=== PATIENT | female | born 1990 | race Caucasian/White ===

== ENCOUNTER 2019-09-24 06:50 | Inpatient (IN) | payer BC, SELFPAY ==
[2017-06-03 15:54] VITALS: BMI 25.6
[2019-09-24 07:23] VITALS: BMI 26.4
[2019-09-24] MEDS: Lactated Ringers 1,000 ML 50 ML IV (07:50)
[2019-09-24 08:11] LABS: Absolute Neutrophil Count 6.6 X10^3/uL (2.0-7.7); Basophil# 0.04 X10^3/uL; Basophil% 0.4 % (0-1); Eosinophil# 0.12 X10^3/uL; Eosinophils% 1.3 % (0-5); Hematocrit 36.9 % (37-47); Hemoglobin 12.7 g/dL (12.0-15.0); Lymphocyte % 15.5 % (19-41); Mean Corp Hgb Conc 34.4 g/dL (32-36); Mean Corpuscular Hgb 31.8 pg (27.0-32.0); Mean Corpuscular Volume 92.3 fL (81-99); Mean Platelet Vol. 10.5 fl (6.2-12.0); Monocyte# 0.76 X10^3/uL; Monocyte% 8.4 % (0-10); NRBC Flagged by Analyzer 0 % (0-5); Neutrophil # 6.57 X10^3/uL (2.7-7.7); Platelet Count 170 K/mm3 (150-450); RBC Distribution Width CV 13.2 % (11.6-14.6); RBC Distribution Width SD 43.5 fl (35.1-43.9)
[2019-09-24 08:23] LABS: AST(SGOT) 13 U/L (15-37)
[2019-09-24 08:32] LABS: Partial Thromboplast Time 27.6 Seconds (24.1-36.2)
[2019-09-24] MEDS: Oxytocin 30 units/NS 500 ml 30 UNITS/500 ML IV.SOLN IV (08:33)
--- NOTE | 2019-09-24 09:28 | PCM.HP.OB ---
History Date of Admission: 06/03/17 Final JANETH: 09/28/19 Final JANETH Source: US <20 weeks Gestational age: 39 Weeks and 3 Days History of this : This is a 29 year-old, 2 para 1 presents at 39-3/7 weeks gestation for duction of labor due to history of venous thromboembolism and has been on Lovenox. She desires epidural, and due to risk of not being able to get an epidural if she is recently taken Lovenox, she was scheduled for induction. This has been uncomplicated. Did have some nausea and vomiting of in the first trimester. She has been on Lovenox. She denies any vaginal bleeding or leaking of fluid. She is had good movement. No regular contractions. Obstetrical history is significant for 1 full-term vaginal delivery of a 7 pound 11 ounce without complications at 39 weeks and 6 days. S medical history is significant for remote history of chlamydia that was treated, history of DVT of the left leg, and history of mood disorder. Allergies clindamycin Allergy (Verified 09/24/19 07:24) Rash Home Medications: Home Medications Vits [Prenatabs FA ] 1 tablet PO DAILY 10/13/16 Enoxaparin Sodium [Lovenox] 40 mg SQ DAILY 09/24/19 Smoking Status: Never smoker Alcohol: None Number of Fetus(es): 1 NST - FHR Rate Baby A Baseline: normal Variability:: Moderate Accelerations:: 15 x 15 NST Reactive:: Yes FHR Category:: Category I Uterine Activity:: irreg ctxs History Past Pregnancies: Past Pregnancies Delivery Date Name GA/ Weeks Outcome Route Wt Sex Labor Length Anesthesia Delivery Location Provider FOB Expected Delivery Method: Spontaneous Vaginal Review of Systems Constitutional: Denies: Chills, Fever Eyes: Denies: Blurred vision Cardiovascular: Denies: Chest Pain Respiratory: Denies: Cough, Shortness of Breath Genitourinary: Denies: Dysuria, Hematuria Skin: Denies: Rash Neurological: Denies: Blurred vision, Change in Speech, Confusion Hematologic/ Lymphatic: Reports: Hx of blood clot Physical Exam General: Alert, Cooperative, No apparent distress Cardiovascular: Regular rate Lungs: Normal air movement Abdomen: Soft, Non Tender, Non-Distended, Gravid, Appropriate for Gestational Age Extremities:: No edema Neurological: Cranial nerves II-XII grossly intact, Neuro grossly intact. 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 We are holding the Lovenox for 24 hours before induction so patient can get epidural. Will restart Lovenox for history of VTE after delivery. Risk benefits and alternatives to induction been discussed with the patient, her questions were answered to her satisfaction she desires to proceed. May have epidural, nitrous oxide or IV pain medications as needed. Estimated weight is less than her previous delivery. Pelvis is clinically adequate to expect vaginal delivery.
[2019-09-24] MEDS: Lactated Ringers 500 ML 999 ML IV (09:29)
[2019-09-24] MEDS: fentaNYL-bupivacaine (epidural) 100 ML BAG EPIDURAL (10:53)
[2019-09-24] MEDS: Oxytocin 30 units/NS 500 ml 30 UNITS/500 ML IV.SOLN 334 UNITS IV (12:12)
--- NOTE | 2019-09-24 12:25 | PCM.OPRPT ---
Vaginal Delivery Maternal Presentation: Medically Indicated Induction Method of Induction: Pitocin, Amniotomy Medical Reason for Induction: - - on lovenox, h/o VTE Amniotic Membrane Rupture Type: Artificial Amniotic Fluid Description: Clear Final JANETH: 09/28/19 Final JANETH Source: US <20 weeks Gestational age: 39 Weeks and 3 Days Date of Procedure: 09/24/19 Pre-Operative Diagnosis: labor Post-Operative Diagnosis: same Surgery/ Procedure Performed: Spontaneous Vaginal Delivery Type of Anesthesia: Epidural Description of Procedure: A vigorous [female] was delivered [RICHMOND] over a small first-degree perineal abrasion. The remainder the was delivered with maternal pushing and gentle traction only in less than 15 seconds. The Pitocin infusion was initiated for active management of the third stage. The cord was clamped and cut [after 1 minute]. The infant was attended to by the waiting nursing staff. The placenta was delivered spontaneously and intact. The cervix and vagina were intact. The first-degree perineal laceration was not repaired, it was hemostatic. Sponge and needle counts were correct. A vaginal sweep was completed by me. Presentation: RICHMOND Placental Delivery Description: Spontaneous Placenta Disposition: [facility] Cord Vessel Description: 3 Vessels Cord Entanglement: None Drain: - - none Estimated Blood Loss: 200 Infant A gender: Female (1 minute): 9 (5 minute): 10 Episiotomy Description: None Laceration: 1st degree - perineal Medications given after delivery: IV Pitocin Complications: None
--- NOTE | 2019-09-24 12:35 | NURSING ---
No other epidural placement but was in surgery.
[2019-09-24 18:00] VITALS: BP 115/65; PULSE 94; RESP 16; TEMP 37.2; O2SAT 97
[2019-09-24 19:38] VITALS: BP 110/61; PULSE 84; RESP 16; TEMP 36.6; O2SAT 96
[2019-09-24] MEDS: Senna/Docusate Sodium 1 Tablet PO (21:29)
[2019-09-25 00:35] VITALS: BP 108/58; PULSE 89; RESP 16; TEMP 36.7; O2SAT 95
[2019-09-25 04:30] VITALS: BP 118/74; PULSE 72; RESP 18; TEMP 36.3; O2SAT 98
[2019-09-25] MEDS: Naproxen 250 MG Tablet 500 MG PO (04:35)
[2019-09-25] MEDS: Senna/Docusate Sodium 1 Tablet PO (07:54)
[2019-09-25] MEDS: Enoxaparin 40 MG/0.4 ML Syringe SC (07:54)
[2019-09-25 08:00] VITALS: BP 101/56; PULSE 67; RESP 16; TEMP 36.7
--- NOTE | 2019-09-25 09:41 | PCM.PN.OB ---
Subjective: Pain well controlled. Average lochia. No new complaints. - Physical Exam Vitals/I&O's: Vital Signs Temp Pulse Resp BP Pulse Ox 98.1 F 67 16 101/56 L 98 09/25/19 08:00 09/25/19 08:00 09/25/19 08:00 09/25/19 08:00 09/25/19 04:30 Oxygen Delivery Method Room Air Weight: 69.8 kg Body Mass Index (BMI) 26.4 Intake and Output for Last 24 Hours 09/23/19 09/24/19 09/25/19 23:59 23:59 23:59 Intake Total 1220.9 / 1220.9 Balance 1220.9 / 1220.9 General: Alert, Cooperative, No apparent distress Current Medications Acetaminophen (Tylenol) 1,000 mg PO Q8H PRN PRN PRN Reason: Pain Score 1-3/10 Bisacodyl (Dulcolax) 10 mg RECTAL UD PRN PRN Reason: If no BM Dibucaine (Dibucaine) 1 applic TOPICAL TID PRN PRN; Protocol PRN Reason: Discomfort Enoxaparin Sodium (Lovenox) 40 mg SC DAILY@0800 JUSTEN Last Admin: 09/25/19 07:54 Dose: 40 mg Documented by: Hydrocortisone (Hytone) 1 applic TOPICAL TID PRN PRN; Protocol PRN Reason: Discomfort Methylergonovine Maleate (Methergine) 0.2 mg IM X1 PRN PRN Reason: Excess bleeding/uterine atony Naproxen (Naprosyn) 500 mg PO Q8H PRN PRN PRN Reason: Pain Score 1-3/10 Last Admin: 09/25/19 04:35 Dose: 500 mg Documented by: Ondansetron HCl (Zofran) 4 mg IV Q4H PRN PRN PRN Reason: Nausea Oxycodone HCl (Oxyir) 5 - 10 mg PO Q4H PRN PRN PRN Reason: Pain Score 4-10/10 Prochlorperazine Edisylate (Compazine Iv) 10 mg IV Q6H PRN PRN PRN Reason: NAUSEA/VOMITING Senna/Docusate Sodium (Senokot-S, Janae-Colace) 1 - 2 tablet PO DAILY PRN PRN PRN Reason: Constipation Last Admin: 09/25/19 07:54 Dose: 2 tablet Documented by: Simethicone (Mylicon) 80 mg PO PCHS PRN PRN Reason: Indigestion/Stomach pain Sodium Chloride () 5 - 15 ml IV UD PRN PRN Reason: SALINE FLUSH Medical Necessity - Tobacco Use Smoking Status: Never smoker Assessment/Plan day #1 status post vaginal delivery. Patient and are both doing well. Working on breast-feeding. Routine care. Desires discharge home tomorrow.
[2019-09-25 11:50] VITALS: BP 104/55; PULSE 71; RESP 16; TEMP 36.8
[2019-09-25 15:14] VITALS: BP 109/69; PULSE 71; RESP 16; TEMP 36.9
[2019-09-25 20:05] VITALS: BP 110/73; PULSE 70; RESP 16; TEMP 37.1
[2019-09-26 01:30] VITALS: BP 102/55; PULSE 80; RESP 16; TEMP 36.9
[2019-09-26 07:47] VITALS: BP 114/68; PULSE 74; RESP 16; TEMP 37.1
[2019-09-26] MEDS: Enoxaparin 40 MG/0.4 ML Syringe SC (07:55)
--- NOTE | 2019-09-26 08:03 | PCM.PN.OB ---
Subjective: Patient seen at bedside, doing well. Patient reports good pain control. Mild lochia. Breast-feeding going well. - Physical Exam Vitals/I&O's: Vital Signs Temp Pulse Resp BP Pulse Ox 98.8 F 74 16 114/68 98 09/26/19 07:47 09/26/19 07:47 09/26/19 07:47 09/26/19 07:47 09/25/19 04:30 Oxygen Delivery Method Room Air Weight: 69.8 kg Body Mass Index (BMI) 26.4 Intake and Output for Last 24 Hours 09/24/19 09/25/19 09/26/19 23:59 23:59 23:59 Intake Total 1220.9 / 1220.9 Balance 1220.9 / 1220.9 General: Alert, Oriented x3 Abdomen: Soft, Non Tender, Non-Distended, - - FUNDUS FIRM Extremities: No Calf Tenderness Neurological: Cranial nerves II-XII grossly intact Current Medications Acetaminophen (Tylenol) 1,000 mg PO Q8H PRN PRN PRN Reason: Pain Score 1-3/10 Bisacodyl (Dulcolax) 10 mg RECTAL UD PRN PRN Reason: If no BM Dibucaine (Dibucaine) 1 applic TOPICAL TID PRN PRN; Protocol PRN Reason: Discomfort Enoxaparin Sodium (Lovenox) 40 mg SC DAILY@0800 JUSTEN Last Admin: 09/26/19 07:55 Dose: 40 mg Documented by: Hydrocortisone (Hytone) 1 applic TOPICAL TID PRN PRN; Protocol PRN Reason: Discomfort Methylergonovine Maleate (Methergine) 0.2 mg IM X1 PRN PRN Reason: Excess bleeding/uterine atony Naproxen (Naprosyn) 500 mg PO Q8H PRN PRN PRN Reason: Pain Score 1-3/10 Last Admin: 09/25/19 04:35 Dose: 500 mg Documented by: Ondansetron HCl (Zofran) 4 mg IV Q4H PRN PRN PRN Reason: Nausea Oxycodone HCl (Oxyir) 5 - 10 mg PO Q4H PRN PRN PRN Reason: Pain Score 4-10/10 Prochlorperazine Edisylate (Compazine Iv) 10 mg IV Q6H PRN PRN PRN Reason: NAUSEA/VOMITING Senna/Docusate Sodium (Senokot-S, Janae-Colace) 1 - 2 tablet PO DAILY PRN PRN PRN Reason: Constipation Last Admin: 09/25/19 07:54 Dose: 2 tablet Documented by: Simethicone (Mylicon) 80 mg PO PCHS PRN PRN Reason: Indigestion/Stomach pain Sodium Chloride () 5 - 15 ml IV UD PRN PRN Reason: SALINE FLUSH Medical Necessity - Tobacco Use Smoking Status: Never smoker Assessment/Plan ppd#2, DOING WELL ROUTINE CARE PAIN MGMT DC HOME TODAY- CONTINUE LOVENOX 40 DAILY - 12 WEEKS PP- H/O DVT
--- NOTE | 2019-09-26 08:09 | DCINST_ITS ---
Discharge Diet: No Restrictions Discharge Activity: Return to Normal Activity, May not drive while taking narcotic pain medications., May Shower May resume sexual activity in: 4-6 weeks Additional Activity Instructions:: Nothing in the vagina for 4-6 weeks. You may return to work/school in 6 weeks. Call your doctor if your incision/area has: Continuous Slow Oozing, Sudden Increased Bleeding, Increased Pain/ Swelling, Increased Redness, Foul Smelling Discharge Additional Instructions: If you experience any of the following, contact your healthcare provider. * Bleeding that soaks a pad every hour for 2 hours * Fever 100.4 or higher * Unrelieved incision or abdominal pain * Swelling, redness, discharge or bleeding from your incision or episiotomy site * Your incision begins to separate * Problems urinating (including inability to urinate or burning while urinating). * Visual changes * Severe headache * Flu-like symptoms * Pain or redness in one of both of your breasts * Pain, warmth, tenderness or swelling in your legs, especially the calf area * Frequent nausea and vomiting * Symptoms of depression or anxiety If you experience any of the following, call 911 or go to the nearest Emergency Room. * Chest pain * Problems breathing * Seizure activity * Partial or complete paralysis of a body part, slurred speech, weakness or drooping of the face, or a sudden inability to walk or hold your balance Allergies/Adverse Reactions: Allergies clindamycin Allergy (Verified 09/24/19 07:24) Rash Medications to take at Discharge Vits [Prenatabs FA ] 1 tablet PO DAILY 10/13/16 Enoxaparin Sodium [Lovenox] 40 mg SQ DAILY #30 syringe 09/26/19 Naproxen [Naprosyn] 500 mg PO Q8H PRN PRN #30 tab 09/26/19 The following prescriptions were given: Enoxaparin Sodium [Lovenox] 40 mg SQ DAILY #30 syringe Transmission Status: Pending to [id number] Naproxen [Naprosyn] 500 mg PO Q8H PRN PRN #30 tab PRN Reason: Pain Score 1-3/10 Transmission Status: Pending to [id number] When: Call to make an appointment with your doctor in 6 weeks. If you had elevated Blood Pressure or 4th degree laceration you will need to be seen in 2 weeks. Primary Care Physician: Twin Guajardo DO [Primary Care Provider] - Test Results: Test results from this visit will be discussed in further detail at your follow- up appointment, if applicable.
== END 2019-09-26 11:00 | disposition home or self-care (01) | DRG 807 ==
PROVIDERS: Admitting Provider Obstetrics & Gynecology; Family Provider Student in an Organized Health Care Education/Training Program; PCP Student in an Organized Health Care Education/Training Program; Referring Provider Obstetrics & Gynecology; Visit Provider Obstetrics & Gynecology
DX: O75.9 Complication of labor and delivery, unspecified (principal); Z37.0 Single live birth; O70.0 First degree perineal laceration during delivery; M41.9 Scoliosis, unspecified; Z86.718 Personal history of other venous thrombosis and embolism; Z3A.39 39 weeks gestation of pregnancy
CPT/HCPCS: 59050; 84450; 85025; 85730; 86850; 86900; 86901; 99218; J7120; G0378

== ENCOUNTER 2021-08-22 13:14 | Day surgery (SDC) | payer BC, SELFPAY ==
--- NOTE | 2021-08-13 11:36 | PCM.HP.BLA ---
History and Physical Date of Admission: 08/22/21 HPI: The patient is a 31 year old female presenting for pre-operative visit. She is scheduled for hysteroscopy dilation and curettage, and Mirena IUD insertion, for abnormal uterine bleeding and contraception on 08/22/21. Procedure discussed along with risks, benefits and complications. Other alternatives discussed for management. Consent form signed? Yes. ? ? PAST MEDICAL HISTORY PAST MEDICAL HISTORY Diagnosis Date ? Chlamydia 2009 ? hsv 2 2019 ? Infectious mononucleosis ? ? 07/19/10 ? Mental disorder ? ? Strain of shoulder 07/30/2021 ? Venous thrombosis 03/2008 ? Left Leg, unsure of cause, ? due to OCP ? ? PAST SURGICAL HISTORY PAST SURGICAL HISTORY Procedure Laterality Date ? INSERT INTRAUTERINE DEVICE ? 06/19/08, 07/2013 ? mirena, removed 08/2016 ? PAST SURGICAL HISTORY OF ? ? ? wisdom teeth ? ? ? CURRENT MEDICATIONS Current Outpatient Medications Medication Sig Dispense Refill ? medroxyPROGESTERone (PROVERA) 10 mg tablet Take 1 tablet by mouth once daily for 20 days. Start 5 days after menses onset 20 tablet 0 ? No current facility-administered medications for this visit. ? ? ALLERGIES: Clindamycin ? PERSONAL HISTORY: SOCIAL HISTORY Social History ? Tobacco Use ? Smoking status: Never Smoker ? Smokeless tobacco: Never Used Vaping Use ? Vaping Use: Never used Substance Use Topics ? Alcohol use: Not Currently ? ? Comment: rarely ? Drug use: No ? FAMILY HISTORY: FAMILY HISTORY FAMILY HISTORY Problem Relation Age of Onset ? Kidney Disease Mother ? ? other (colon polyp-benign) Father ? ? No Known Problems Brother ? ? No Known Problems Maternal Grandmother ? ? Heart Maternal Grandfather ? ? [place] ? No Known Problems Paternal Grandmother ? ? No Known Problems Paternal Grandfather ? ? No Known Problems Son ? ? ? REVIEW OF SYMPTOMS: GENERAL: denies fevers or chills ENDOCRINOLOGY: has not been on steroids Cardiology : denies palpitations or chest pain Respiratory: denies SOB or cough Hematology: denies history of prolonged bleeding or easy bruising or VTE Allergy: Denies history of personal or family history of allergy to anesthesia ? PHYSICAL EXAMINATION: ? VITALS: Blood pressure 92/62, pulse 76, resp. rate 16, height 5' 4 (1.626 m), weight 144 lb (65.3 kg), last menstrual period 06/11/2021, not currently . ? GENERAL: The patient is well nourished, well hydrated in no acute distress. , The patient is oriented to time, place, and person. NECK: Supple. No lynphadenopathy, normal thyroid, no thyromegaly. LUNGS: Clear to auscultation bilaterally. no wheezes, rhonchi or rales HEART: Regular rate and rhythm, Normal heart sounds and No murmurs or gallops ? IMPRESSION: retroverted uterus, abnormal uterine bleeding, contraception management ? PLAN: The risks/benefits/alternatives and personal involved for the planned hysteroscopy dilation curettage and Mirena IUD insertion were reviewed with the patient. Her questions were answered to her satisfaction and she desires to proceed. Consent was signed. I reviewed with her postop instructions and expectations. ? ? I have reviewed and updated past medical and surgical history, medications and allergies This H&P was completed in my office on 08/12/21. Assessment & Plan Assessment/Plan (1) Abnormal uterine bleeding (AUB): (2) Encounter for IUD insertion:
[2021-08-19 13:34] LABS: Hematocrit 40.6 % (37-47); Hemoglobin 13.4 g/dL (12.0-15.0); Mean Corpuscular Hgb 29.8 pg (27.0-32.0); Mean Corpuscular Volume 90.2 fL (81-99); Mean Platelet Vol. 9.8 fl (6.2-12.0); Platelet Count 226 K/mm3 (150-450); RBC Distribution Width CV 12.7 % (11.6-14.6); RBC Distribution Width SD 41.7 fl (35.1-43.9)
[2021-08-22] VITALS (11 sets, daily range): BP systolic 86–112; BP diastolic 45–66; PULSE 58–93; RESP 18; TEMP 36.6–36.7; O2SAT 98–100; BMI 24.6
--- NOTE | 2021-08-22 | EMB_PTH ---
PATIENT: FREDRICK CONTEH [place] [facility] [id number] AGE/SX: 31/F ROOM: RE08/22/[address]: Dr. Desiree Dudley MD : 1990 BED: DIS: 08/22/2021 SPEC #: [id number] RECD: 08/23/21 07:39 STATUS: MARCO REAlona #: [id number] KAYLA: 08/22/21 00:[address]: Desiree Dudley DEPT: SURGICAL PATHOLOGY RECD BY: Caleb Matos ENTERED: 08/23/21 08:30 SP TYPE: ENDOM BX/C SILVESTRE DR: Dr. Twin Guajardo, DO Tissues: Endometrium, NOS Procedures: Surgery Specimen Level IV HEADER OPERATION: Hysteroscopy, D & C, Mirena IUD insertion PRE-OP DIAGNOSIS: Abnormal uterine bleeding, IUD insertion TISSUE SUBMITTED: Endometrial curettings MICROSCOPIC DIAGNOSIS Endometrium, curettings: Transition endometrium with focal glandular breakdown. Fragments of benign superficial endocervix. Rare strips of benign superficial squamous mucosa. AM:kesha 08/26/2021 MICROSCOPIC DESCRIPTION Slides are reviewed. GROSS DESCRIPTION Received in fixative is one container labeled with the patient's name and designated endometrial curettings. The specimen consists of multiple irregular fragments of light gomes soft tissue that in aggregate measure 1.5 x 1 x <0.1 cm. The specimen is totally submitted in one cassette. / AM:kesha 08/23/21 TC:5 CPT: 25128
[2021-08-22 13:42] LABS: Internal QC Validated? YES +Cl - CLEAR BKGD; Pregnancy, Urine Negative Negative
[2021-08-22] MEDS: Lactated Ringers 1,000 ML 15 ML IV (13:45)
[2021-08-22] MEDS: Ketorolac 30 MG/ML Syringe IV (13:50)
[2021-08-22] MEDS: Acetaminophen 500 MG Tablet 1000 MG PO (13:50)
--- NOTE | 2021-08-22 18:03 | PCM.DC ---
Discharge Instructions Diet Discharge Diet: No restrictions Activity May resume sexual activity in: 2 weeks Lifting Restrictions: none Dressing / Incision Call your doctor if your incision/area has: Sudden Increased Bleeding and Foul Smelling Discharge Call your doctor if you observe: Fever of 101 or Higher and Using more than 1 pad per hour (for 2 hrs in a row) Follow Up Care Please Follow Up With: Desiree Dudley MD When: 2-4 weeks or as needed. Call [phone] to make an appointment or with any concerns. Test Results: Test results from this visit will be discussed in further detail at your follow-up appointment, if applicable. Discharge Plan Admission Primary Reason for Your Visit: D&C with Mirena IUD insertion Attending Provider: Desiree Dudley Primary Care Provider: Twin Guajardo Discharge Orders/Prescriptions Prescriptions: No Action vitamin B complex [Super B Complex] Capsule 1 cap PO DAILY RF: 0 cholecalciferol (vitamin D3) [Vitamin D3] 50 mcg (2,000 unit) Tablet 50 mcg PO DAILY RF: 0 Referrals / Follow Up: Twin Guajardo DO [Primary Care Provider] - Disposition Disposition (needs filled in before D/C Order can be placed): Home, Self Care
[2021-08-22] MEDS: Lidocaine 1% /Epi 1:100 (20ml) 20 ML Vial (18:28)
--- NOTE | 2021-08-22 18:36 | PCM.OPRPT ---
Problems Associated Problem List Diagnoses (1) Abnormal uterine bleeding (AUB): (2) Encounter for IUD insertion: Report of Operation Date of Procedure: 08/22/21 Pre-Operative Diagnosis: AUB, IUD insertion Post-Operative Diagnosis: same Surgery/Procedure Performed:: hysteroscopy D&C with Mirena IUD insertion Description of Surgical Findings:: normal cervix, vagina, endoemtrial cavity without discrete pathology, normal endometrium Surgeon: Desiree Dudley billing manager: None Type of Anesthesia: MAC/Supplemental/Local Anesthesiologist: Garett Luna Special Medications: none Specimen's removed: endometrial curettings Drains: none Estimated Blood Loss (mL): 10 Fluids Replaced: 600 Description of Procedure: The patient was taken to the OR where she was prepped and draped in dorsal lithotomy position. The weighted speculum was placed in the vagina and the anterior lip of the cervix was grasped with a single-tooth tenaculum. A paracervical block was administered with [1% lidocaine with 1-100,000 epinephrine solution]. The cervix was dilated serially with Hegar dilators. The [5mm] hysteroscope was placed into the uterine cavity and the above findings were noted. Bilateral tubal ostia [were] identified. The hysteroscope was removed. A gentle sharp curettage was done of the uterine cavity. The Mirena IUD was then inserted the usual sterile fashion. The uterus was anteverted and sounded to 8 cm. The strings were trimmed to 2 cm. The instruments were removed from the vagina. The specimen was handed off and sent to pathology. All sponge and needle counts were correct. Vaginal sweep was performed by me. The patient was awakened and taken to the recovery room in stable condition. Hysteroscopic ins: 50cc normal saline Hysteroscopic outs:50cc Grafts/Implants Used: Mirena IUD Procedure Start Time: 18:28 Procedure Stop Time: 18:32 Complications none Admit VTE Documentation VTE Present on Admission: No VTE Mechan Device Prophylaxis: SCD's VTE Pharm Prophylaxis ordered?: No Reason prophylaxis not ordered:: Procedure Not Indicated
== END 2021-08-22 19:48 | disposition home or self-care (01) ==
LOC: SDC 13:14 → AC 13:15
PROVIDERS: Anesthesiology; PCP Student in an Organized Health Care Education/Training Program; Referring Provider Obstetrics & Gynecology; Visit Provider Obstetrics & Gynecology
PROC: 0UDB8ZZ Extraction of Endometrium, Via Natural or Artificial Opening Endoscopic (ICD-10-PCS; CPT 58558; principal; 2021-08-22 14:45)
DX: N93.9 Abnormal uterine and vaginal bleeding, unspecified (principal); N85.4 Malposition of uterus; Z30.430 Encounter for insertion of intrauterine contraceptive device; Z82.49 Family history of ischemic heart disease and other diseases of the circulatory system; Z86.718 Personal history of other venous thrombosis and embolism; Z88.1 Allergy status to other antibiotic agents
CPT/HCPCS: 58300; 58558; 36415; 81025; 85027; 87635; 88305; C9803; J7120; U0005; J2405; U0003

== ENCOUNTER 2023-05-24 15:03 | Emergency (ER) | payer BC, SELFPAY ==
[2023-05-24 15:03] VITALS: BP 108/70; PULSE 78; RESP 16; TEMP 36.6; O2SAT 99; BMI 24.7
--- NOTE | 2023-05-24 15:18 | EDS_ITS ---
HPI History of Present Illness Chief Complaint: Upper Extremity Injury Informant: patient Narrative Narrative: Healthy 33-year-old female about 19-20 weeks sustained an injury, she [place] the [place] with [place] 200+ pound sheep, who became scared and caused her to fall, and then stepped on her, injuring her left upper arm, she does not know if anything else injured but she does not think so, she is unsure exactly how she fell, her states that it looks like she rolled a little. She denies any abdominal pain, vaginal leakage or bleeding, she is feeling a little flutter in her abdomen consistent with the baby moving, but is just concerned nicely about her . She is on Lovenox shots because he has a history of a DVT. [facility] Medical History Abnormal uterine bleeding (AUB) Depression DVT (deep venous thrombosis) Former smoker Non-smoker Open wound Restless legs Wears glasses Home Medications cholecalciferol (vitamin D3) 50 mcg (2,000 unit) tablet (Vitamin D3) 50 mcg PO DAILY 08/16/21 [History Last Taken Unknown] vitamin B complex 1 cap PO DAILY 08/16/21 [History Last Taken Unknown] Allergy/AdvReac Type Severity Reaction Status Date / Time clindamycin Allergy Rash Verified 05/24/23 15:05 Surgical History History of wisdom tooth extraction Social History Smoking Status: Never smoker [facility] ED Constitutional Constitutional ED: Denies chills or fever(s) Eyes Eyes: Denies change in vision or diplopia ENT ENT ED: Denies rhinorrhea or sore throat Cardiovascular Cardiovascular: Denies chest pain or palpitations Respiratory/Chest Respiratory/Chest: Denies cough or dyspnea Gastrointestinal Gastrointestinal: Denies abdominal pain, diarrhea, nausea or vomiting Genitourinary Genitourinary ED: Denies dysuria or hematuria Musculoskeletal Musculoskeletal: Denies back pain or neck pain Integumentary Denies abscess or rash Neurologic Neurologic: Denies headache(s), paresthesias or weakness Psychiatric Psychiatric: Denies anxiety or suicidal thoughts EXAM Physical Exam Const Vital Signs: 05/24/23 15:03 Temperature 98 F Temperature Source Temporal Pulse Rate 78 Respiratory Rate 16 Blood Pressure 108/70 Blood Pressure Mean 82 Pulse Ox 99 Oxygen Delivery Method Room Air Positive well nourished and well developed General Appearance ED: well developed and NAD HEENT Reports moist mucous membranes normocephalic and atraumatic Eyes PERRL and EOMs intact bilaterally Neck full ROM and supple Resp normal respiratory effort and clear to auscultation bilaterally Cardio regular rate, regular rhythm and no murmurs GI non-tender GI Narrative: Lower abdominal distention to about the umbilicus consistent with second trimester . No signs of trauma. Auscultation: normoactive bowel sounds Palpation: soft Back/Spine no CVA tenderness General Back: other FROM Extremity normal to inspection Extremity Narrative: Mild tenderness at contusion left upper arm medially, no bony tenderness, full range of motion. No other extremity bony tenderness or signs of trauma except for a minor abrasion on the right foot. General Extremety ED: Yes tenderness; Negative for edema or pulses abnormal General Extremity: Negative for edema or pulses abnormal Neuro oriented x3, CN's II-XII intact bilaterally and no sensory deficits noted Sensorium / Orientation: awake and alert Motor Exam: strength 5/5 throughout Skin no rashes or lesions noted and no wounds Skin Narrative: contusion L upper arm Trauma: abrasion MDM MDM MDM Narrative Medical decision making narrative: Nursing check heart tones 158. Her blood type is O+ no RhoGAM indicated. Discussed with Tracie Marx on for her computer engineering technician. She is okay with the patient following up as an outpatient. Patient is okay with this as well. We discussed reasons to return. History & Record Review Additional record(s) reviewed:: Prior labs (blood type: O+) Management Discussion w/another healthcare provider: Building Energy Consultant Discharge Plan Triage Chief Complaint: Upper Extremity Injury ED Provider: Jean Marie Jiang Dx/Rx/DC Orders Clinical Impression: Contusion of left arm, Second trimester , Fall Instructions: ED Contusion, Upper Extremity Prescriptions: No Action vitamin B complex [Super B Complex] Capsule 1 cap PO DAILY cholecalciferol (vitamin D3) [Vitamin D3] 50 mcg (2,000 unit) Tablet 50 mcg PO DAILY Primary Care Provider: Twin Guajardo Referrals: Twin Guajardo, [Primary Care Provider] - Desiree Dudley MD [Med Staff - Active Staff] - As soon as possible Disposition Disposition: Home, Self Care
[2023-05-24 16:27] VITALS: BP 124/76; PULSE 62; RESP 15; O2SAT 97
== END 2023-05-24 16:29 | disposition home or self-care (01) ==
LOC: ED 16:19
PROVIDERS: Emergency Provider Emergency Medicine; PCP Student in an Organized Health Care Education/Training Program; Visit Provider Emergency Medicine
DX: O9A.212 Injury, poisoning and certain other consequences of external causes complicating pregnancy, second trimester (principal); Z86.718 Personal history of other venous thrombosis and embolism; Z79.01 Long term (current) use of anticoagulants; S50.12XA Contusion of left forearm, initial encounter; W17.89XA Other fall from one level to another, initial encounter; Y93.89 Activity, other specified; Y92.89 Other specified places as the place of occurrence of the external cause; Z3A.19 19 weeks gestation of pregnancy
CPT/HCPCS: 99282

== ENCOUNTER 2023-10-12 06:55 | Inpatient (IN) | payer BC, SELFPAY ==
[2023-10-12] VITALS (32 sets, daily range): BP systolic 95–112; BP diastolic 52–70; PULSE 61–96; RESP 16–18; TEMP 36.6–36.8; O2SAT 95–100; BMI 26.9
--- OUTSIDE RECORDS SUMMARY | 2023-10-12 07:01 | XMS RPT_ITS | CCD ---
Author Name Unknown Address [address] [place] [address] Organization [facility] Care Team Providers Care Exhibit Builder Name Role Phone Twin Toro DO Primary Care Provider [phone] TWIN TORO Primary Care Unavailable CADEN SPEARS Attending Unavailable TORO, TWIN Kelby Primary Care Unavailable CELENA WALKER Attending Unavailable MINERVA SCHULTZ Referring Unavailable TORO, TWIN Kelby Primary Care Unavailable TORO TWIN Kelby Primary Care Unavailable TRACIE HARO Attending Unavailable TORO, TWIN Kelby Primary Care Unavailable TORO, TWIN Kelby Primary Care Unavailable RAYMOND VANN Referring Unavail able TRACIE HARO Referring Unavailable TORO, TWIN Kelby Primary Care Unavailable TORO, TWIN Kelby Primary Care Unavailable RAYMOND VANN Attending Unavail able TORO, TWIN Kelby Primary Care Unavailable RAYMOND VANN Attending Unavail able TRACIE HARO Attending Unavailable TORO, TWIN Kelby Primary Care Unavailable TORO, TWIN Kelby Primary Care Unavailable TRA HERNÁNDEZ Attending Unavailable TORO, TWIN Kelby Primary Care Unavailable TRA HERNÁNDEZ Attending Unavailable TRACIE HARO Attending Unavailable TORO, TWIN Kelby Primary Care Unavailable TORO, TWIN Kelby Primary Care Unavailable CADEN SPEARS Attending Unavailable TWIN TORO Primary Care Unavailable RAYMOND VANN Attending Unavail able TORO, TWIN Kelby Primary Care Unavailable TRA HERNÁNDEZ Attending Unavailable TORO, TWIN Kelby Primary Care Unavailable TRA HERNÁNDEZ Referring Unavailable TRA HERNÁNDEZ Attending Unavailable TORO, TWIN Kelby Primary Care Unavailable TRA HERNÁNDEZ Referring Unavailable TORO, TWIN Kelby Primary Care Unavailable TRA HERNÁNDEZ Attending Unavailable TWIN TORO Primary Care Unavailable RAYMOND VANN Attending Unavail able TWIN TORO Primary Care Unavailable RAYMOND VANN Referring Unavail able TWIN TORO Primary Care Unavailable RAYMOND VANN Attending Unavail able Allergies Allergy Classification Reported Allergen(s) Allergy Type Date of Onset Reaction(s) Facility (20 sources) Clindamycin; Translations: [CLINDAMYCIN] Drug Allergy 08-08-2013 Itching [facility] Medications Current Medications Medication Drug Class(es) Dates Sig (Normalized) Sig (Original) amoxicillin 875 mg oral tablet (1 source) Penicillin-class Antibacterial Start: 01-02-2023 End: 01-12-2023 take 1 tablet by mouth twice daily amoxicillin (AMOXIL) 875 mg tablet Indications: Strep throat Take 1 tablet by mouth twice daily for 10 days. 20 tablet 0 01/02/2023 01/12/2023 Active Completed/Discontinued Medications Medication Drug Class(es) Dates Sig (Normalized) Sig (Original) diphenhydrAMINE (12 sources) Histamine-1 Receptor Antagonist diphenhydramine HCl (UNISOM, DIPHENHYDRAMINE, ORAL) Take by mouth. 0 Active Problems Active Problems Problem Classification Problem Date Documented Date Episodic/Chronic Administrative/social admission (2 sources) Stress due to family tension; Translations: [Problems in relationship with spouse or partner] Episodic Anxiety disorders (20 sources) Generalized anxiety disorder; Translations: [Generalized anxiety disorder] Onset: 07-01-2023 Chronic Immunizations and screening for infectious disease (2 sources) Needs influenza immunization; Translations: [Encounter for immunization] 06-03-2023 Episodic Inflammatory diseases of female pelvic organs (1 source) Acute vaginitis; Translations: [Acute vaginitis] 03-12-2021 Episodic Mood disorders (20 sources) Recurrent major depressive episodes; Translations: [Major depressive disorder, recurrent, unspecified] Onset: 11-11-2010 11-11-2010 Chronic Mood disorders (1 source) Mood disorders; Translations: [History of depression, currently ] Onset: 02-19-2023 Other complications of (4 sources) High risk ; Translations: [Supervision of high risk , unspecified, second trimester] 05-06-2023 Episodic Other complications of (1 source) Supervision of high risk , unspecified, second trimester; Translations: [Supervision of high risk in second trimester] Onset: 08-12-2023 Episodic Other female genital disorders (1 source) Lesion of vulva; Translations: [Other specified noninflammatory disorders of vulva and perineum] 09-04-2020 Episodic Other upper respiratory infections (2 sources) Sore throat symptom; Translations: [Acute pharyngitis, unspecified] Episodic Residual codes; unclassified (1 source) Gestation period, 16 weeks; Translations: [16 weeks gestation of ] 05-06-2023 Episodic Residual codes; unclassified (1 source) Gestation period, 18 weeks; Translations: [18 weeks gestation of ] 05-20-2023 Episodic Residual codes; unclassified (1 source) Gestation period, 20 weeks; Translations: [20 weeks gestation of ] 06-03-2023 Episodic Residual codes; unclassified (1 source) Gestation period, 24 weeks; Translations: [24 weeks gestation of ] 07-01-2023 Episodic Residual codes; unclassified (1 source) Gestation period, 28 weeks; Translations: [28 weeks gestation of ] 07-29-2023 Episodic Residual codes; unclassified (1 source) Gestation period, 30 weeks; Translations: [30 weeks gestation of ] 08-12-2023 Episodic Residual codes; unclassified (1 source) 30 weeks gestation of ; Translations: [30 weeks gestation of ] Onset: 08-12-2023 Episodic Residual codes; unclassified (1 source) 24 weeks gestation of ; Translations: [24 weeks gestation of ] Onset: 07-29-2023 Episodic Past or Other Problems Problem Classification Problem Date Documented Da te Episodic/Chronic Contraceptive and procreative management (3 sources) Patient encounter status; Translations: [Encounter for removal of intrauterine contraceptive device] Onset: 11-28-2022 Episodic Other complications of (20 sources) H/O: depression; Translations: [History of depression, currently ] Onset: 10-09-2016 02-19-2023 Episodic Other infections; including parasitic (13 sources) History of sexually transmitted disease; Translations: [Personal history of other infectious and parasitic diseases] Onset: 02-19-2023 02-19-2023 Episodic Other infections; including parasitic (1 source) Personal history of other infectious and parasitic diseases; Translations: [History of herpes genitalis] Onset: 02-19-2023 Episodic Other and delivery including normal (7 sources) with uncertain dates; Translations: [Encounter for supervision of normal , unspecified, first trimester] Onset: 03-09-2023 Episodic Phlebitis; thrombophlebitis and thromboembolism (20 sources) H/O: thrombosis; Translations: [Personal history of other venous thrombosis and embolism] Onset: 10-09-2016 09-09-2019 Episodic Screening and history of mental health and substance abuse codes (2 sources) Personal history of other mental and behavioral disorders; Translations: [History of depression, currently ] Onset: 02-19-2023 Episodic Sprains and strains (20 sources) Shoulder strain; Translations: [Strain of unspecified muscle, fascia and tendon at shoulder and upper arm level, unspecified arm, initial encounter] Onset: 07-30-2021 07-30-2021 Episodic Results Test Name Value Interpretation Reference Range Facil ity Vital Signs Date Time Vital Sign Value Performing Clinician Samir henson 08-12-2023 13:08-0500 Body weight 67.13 kg Tracie Haro APRN.CNMelchor Work Phone: [facility] 08-12-2023 13:08-0500 Diastolic blood pressure 62 mm[Hg] Tracie Haro APRN.RUTH Work Phone: [facility] 08-12-2023 13:08-0500 Systolic blood pressure 110 mm[Hg] Tracie Haro APRN.RUTH Work Phone: [facility] 07-29-2023 10:27-0500 Body weight 66.22 kg Tra Hernández MD Work Phone: [facility] 07-29-2023 10:27-0500 Diastolic blood pressure 56 mm[Hg] Tra Hernández MD Work Phone: [facility] 07-29-2023 10:27-0500 Systolic blood pressure 98 mm[Hg] Tra Hernández MD Work Phone: [facility] 07-01-2023 10:14-0400 Body weight 63.96 kg Tracie Haro OFFICE HELPER.CNM Work Phone: [facility] 07-01-2023 10:14-0400 Diastolic blood pressure 60 mm[Hg] Tracie Haro OFFICE HELPER.CNM Work Phone: [facility] 07-01-2023 10:14-0400 Systolic blood pressure 98 mm[Hg] Tracie Haro OFFICE HELPER.CNM Work Phone: [facility] 06-03-2023 10:15-0400 Body weight 62.6 kg Raymond Stack MD Work Phone: [facility] 06-03-2023 10:150400 Diastolic blood pressure 56 mm[Hg] Raymond Stack MD Work Phone: [facility] 06-03-2023 10:15-0400 Systolic blood pressure 98 mm[Hg] Raymond Stack MD Work Phone: [facility] 05-06-2023 10:290400 Body weight 63.05 kg Raymond Stack MD Work Phone: [facility] 05-06-2023 10:290400 Diastolic blood pressure 60 mm[Hg] Raymond Stack MD Work Phone: [facility] 05-06-2023 10:29-0400 Systolic blood pressure 104 mm[Hg] Raymond Stack MD Work Phone: [facility] 03-09-2023 13:02-0400 Body height 160 cm Tra Hernández MD Work Phone: [facility] 03-09-2023 13:020400 Body weight 63.5 kg Tra Hernández MD Work Phone: [facility] 03-09-2023 13:02-0400 Diastolic blood pressure 64 mm[Hg] Tra Hernández MD Work Phone: [facility] 03-09-2023 13:02-0400 Systolic blood pressure 112 mm[Hg] Tra Hernández MD Work Phone: [facility] 01-02-2023 18:21-0400 Body temperature 99.5 [degF] Perla Larouere OFFICE HELPER.SOFTWARE IMPLEMENTATION PROJECT MANAGER Work Phone: [facility] 01-02-2023 18:21-0400 Body weight 64.14 kg Perla Larouere OFFICE HELPER.SOFTWARE IMPLEMENTATION PROJECT MANAGER Work Phone: [facility] 01-02-2023 18:21-0400 Diastolic blood pressure 62 mm[Hg] Perla Larouere OFFICE HELPER.SOFTWARE IMPLEMENTATION PROJECT MANAGER Work Phone: [facility] 01-02-2023 18:21-0400 Heart rate 106 /min Perla Larouere OFFICE HELPER.SOFTWARE IMPLEMENTATION PROJECT MANAGER Work Phone: [facility] 01-02-2023 18:21-0400 Respiratory rate 18 /min Perla Larouere OFFICE HELPER.SOFTWARE IMPLEMENTATION PROJECT MANAGER Work Phone: [facility] 01-02-2023 18:21-0400 SaO2% (BldA) [Mass fraction] 97 % Perla Larouere OFFICE HELPER.SOFTWARE IMPLEMENTATION PROJECT MANAGER Work Phone: [facility] 01-02-2023 18:21-0400 Systolic blood pressure 98 mm[Hg] Perla Larouere OFFICE HELPER.SOFTWARE IMPLEMENTATION PROJECT MANAGER Work Phone: [facility] 11-28-2022 13:48-0400 Body weight 64.95 kg Celena Union Pier OFFICE HELPER.SOFTWARE IMPLEMENTATION PROJECT MANAGER Work Phone: [facility] 11-28-2022 13:48-0400 Diastolic blood pressure 64 mm[Hg] Celena Denise OFFICE HELPER.SOFTWARE IMPLEMENTATION PROJECT MANAGER Work Phone: [facility] 11-28-2022 13:48-0400 Systolic blood pressure 100 mm[Hg] Celena [place] OFFICE HELPER.SOFTWARE IMPLEMENTATION PROJECT MANAGER Work Phone: [facility] 04-02-2022 14:53-0400 Body weight 63.5 kg Caden Spears OFFICE HELPER.SOFTWARE IMPLEMENTATION PROJECT MANAGER Work Phone: [facility] 04-02-2022 14:53-0400 Diastolic blood pressure 60 mm[Hg] Caden Rajguru OFFICE HELPER.SOFTWARE IMPLEMENTATION PROJECT MANAGER Work Phone: [facility] 04-02-2022 14:53-0400 Systolic blood pressure 102 mm[Hg] Caden Rajguru OFFICE HELPER.SOFTWARE IMPLEMENTATION PROJECT MANAGER Work Phone: [facility] 03-05-2022 08:31-0400 Body height 160 cm Caden Rajguru OFFICE HELPER.SOFTWARE IMPLEMENTATION PROJECT MANAGER Work Phone: [facility] 03-05-2022 08:31-0400 Body weight 63.5 kg Caden Rajguru OFFICE HELPER.SOFTWARE IMPLEMENTATION PROJECT MANAGER Work Phone: [facility] 03-05-2022 08:31-0400 Diastolic blood pressure 68 mm[Hg] Caden Rajguru OFFICE HELPER.SOFTWARE IMPLEMENTATION PROJECT MANAGER Work Phone: [facility] 03-05-2022 08:31-0400 Heart rate 60 /min Caden Rajguru OFFICE HELPER.SOFTWARE IMPLEMENTATION PROJECT MANAGER Work Phone: [facility] 03-05-2022 08:31-0400 Systolic blood pressure 118 mm[Hg] Caden Rajguru OFFICE HELPER.SOFTWARE IMPLEMENTATION PROJECT MANAGER Work Phone: [facility] Encounters Encounter Date Encounter Type Care Provider Facility Start: 10-07-2023 End: 10-07-2023 ambulatory TWIN L TORO Facility:[facility] Start: 09-30-2023 End: 09-30-2023 ambulatory TWIN L TORO Facility:[facility] Start: 09-23-2023 End: 09-23-2023 ambulatory TWIN L TORO Facility:[facility] Start: 09-09-2023 End: 09-09-2023 ambulatory TRACIE PLOTTS Facility:[facility] Start: 08-26-2023 End: 08-26-2023 ambulatory TWIN L TORO Facility:[facility] Start: 08-12-2023 End: 08-13-2023 ambulatory TRACIE PLOTTS Facility:[facility] Start: 08-12-2023 End: 08-12-2023 Patient encounter procedure Tracie Haro OFFICE HELPER.CNM Work Phone: OB/Gynecology Procedures Date Procedure Procedure Detail Performing Clinician Start: 08-12-2023 URINE OB DIP B/O Edin Haro OFFICE HELPER.CNM Work Phone: Start: 07-29-2023 URINE OB DIP B/O Duarte Hernández MD Work Phone: Start: 07-01-2023 URINE OB DIP B/O Edin Haro OFFICE HELPER.CNM Work Phone: Start: 06-03-2023 INFLUENZA VACCINE, A GE 6 MO - 64 YR, QUADRIVALENT (AFLURIA, FLULAVAL, FLUZONE) Raymond Stack MD Work Phone: Start: 06-03-2023 URINE OB DIP B/O Raymond Stack MD Work Phone: Start: 05-20-2023 Us preg uterus after 1st trimest 09/14 gestation Raymond Stack MD Work Phone: Start: 05-06-2023 URINE OB DIP B/O Raymond Stack MD Work Phone: Start: 04-02-2023 Antibody screen TWIN TORO Plan of Treatment Date Care Activity Detail Author Start: 07-29-2033 Urine microalbumin profile DTaP,Tdap,Td Vaccine (6 - Td or Tdap) [facility] Start: 07-06-2029 Urine microalbumin profile [facility] Start: 03-09-2028 HPV TESTING HPV TESTING [facility] Start: 03-09-2028 PAP TESTING PAP TESTING [facility] Start: 11-08-2024 PAP TESTING PAP TESTING [facility] Start: 07-01-2023 End: 09-30-2023 CBC W Auto Differential panel - Blood CBC + DIFF Lab Routine Supervision of high risk in second trimester 24 weeks gestation of Expected: 07/01/2023, Expires: 09/30/2023 [facility] Work Phone: Immunizations Immunization Date Immunization Notes Care Provider Kristine gold 07-29-2023 tetanus toxoid, redu kira diphtheria toxoid, and acellular pertussis vaccine, adsorbed Tra Hernández MD Work Phone: [facility] 06-03-2023 influenza, injectabl e, quadrivalent, contains preservative Raymond Natalia Stack MD Work Phone: [facility] 10-24-2021 influenza, injectabl e, quadrivalent, contains preservative Caden Rajguru OFFICE HELPER.SOFTWARE IMPLEMENTATION PROJECT MANAGER Work Phone: [facility] 10-24-2021 influenza virus vaccine, unspecified formulation Jalne Pederson MD Work Phone: [facility] 06-26-2020 influenza, injectabl e, quadrivalent, contains preservative Caden Rajguru OFFICE HELPER.SOFTWARE IMPLEMENTATION PROJECT MANAGER Work Phone: [facility] 07-06-2019 tetanus toxoid, redu kira diphtheria toxoid, and acellular pertussis vaccine, adsorbed Caden Rajguru OFFICE HELPER.SOFTWARE IMPLEMENTATION PROJECT MANAGER Work Phone: [facility] 05-27-2019 influenza, injectabl e, quadrivalent, contains preservative Caden Rajguru OFFICE HELPER.SOFTWARE IMPLEMENTATION PROJECT MANAGER Work Phone: [facility] 05-26-2017 influenza, injectabl e, quadrivalent, contains preservative Caden Rajguru OFFICE HELPER.SOFTWARE IMPLEMENTATION PROJECT MANAGER Work Phone: [facility] Work Phone: 02-26-2017 tetanus toxoid, redu kira diphtheria toxoid, and acellular pertussis vaccine, adsorbed Caden Rajguru OFFICE HELPER.SOFTWARE IMPLEMENTATION PROJECT MANAGER Work Phone: [facility] 10-13-2014 tetanus toxoid, redu kira diphtheria toxoid, and acellular pertussis vaccine, adsorbed Caden Rajguru OFFICE HELPER.SOFTWARE IMPLEMENTATION PROJECT MANAGER Work Phone: [facility] Work Phone: 08-27-2012 influenza virus vaccine, unspecified formulation Caden Rajguru OFFICE HELPER.SOFTWARE IMPLEMENTATION PROJECT MANAGER Work Phone: [facility] 03-03-2007 diphtheria, tetanus toxoids and acellular pertussis vaccine Caden Rajguru OFFICE HELPER.SOFTWARE IMPLEMENTATION PROJECT MANAGER Work Phone: [facility] Work Phone: Payers Date Payer Category Payer Unknown [employer] PPO OOS [id number] 2015-Present [phone] [address] [place] [address] PPO [id number] 2015 Unknown [employer] PPO OOS [id number] 2015-Present [phone] [address] [place] [address] PPO [id number] 2015 Unknown [id number] Social History Date Type Detail Facility Start: 02-06-2011 End: 11-28-2022 Tobacco smoking status NHIS Never smoked tobacco [facility] Work Phone: Start: 03-05-2022 End: 01-02-2023 Alcohol intake Current drinker of alcohol (finding) [facility] Start: 03-05-2022 History SDOH Alcohol Comment DAILY [facility] Start: 1990 Sex Assigned At Not on file [facility] Start: 08-04-2020 End: 04-30-2022 Exposure to SARS-CoV-2 (event) Not sure [facility] Work Phone: Start: 02-06-2011 End: 11-28-2022 Tobacco use and exposure Smokeless tobacco non-user [facility] Work Phone: Start: 03-09-2023 End: 07-29-2023 Alcohol intake Ex-drinker (finding) [facility] Start: 02-19-2023 Education 13 [facility] Start: 01-25-2023 [facility] Start: 02-19-2023 End: 03-09-2023 History of Social function [facility] Start: 02-19-2023 End: 03-09-2023 Tobacco use panel [facility] Adult Depression Screening Assessment 0 [facility] Start: 02-10-2019 Alcohol Comment rarely [facility] Goals Date Patient Goal Desired Activity /State Personal health goal Clinical Notes 05-27-2019 to 08-12-2023 Quick Notes - Tracie Haro APRN.CNM - 08/12/2023 1:25 PM ESTPatient InstructionsPrenatal Quick Notes - Tra Hernández MD - 07/29/2023 10:40 AM ESTPatient Instructions Note Date & Type Note Facility 08-12-2023 Miscellaneous Notes Fredrick Feliciano is a 33 year old female who presents at 30w3d Estimated Date of Delivery: 10/18/23 for a routine visit. Good movement. Denies headache, visual changes, chest pain, shortness of breath, vaginal bleeding, leakage of fluid, or dysuria. C/O round ligament pain after working on feet. Suggested wearing support belt. Feeling well overall, no complaints. 8 lbs TWG. ASSESSMENT/PLAN: 1. 30 weeks gestation of - ICD9: V22.2, ICD10: Z3A.30 (primary diagnosis) 2. History of deep vein thrombosis (DVT) of lower extremity - ICD9: V12.51, ICD10: Z86.718 3. Supervision of high risk in second trimester - ICD9: V23.9, ICD10: O09.92 4. Mixed obsessional thoughts and acts - ICD9: 300.3, ICD10: F42.2 - Continue Zoloft - Continue Lovenox PTL precautions reviewed. RTC in 2 weeks for JANINE with growth US per M request. Tracie Haro APRN.CNM documented in this encounter [facility] 08-12-2023 Instructions Yolanda Liang LPN - 08/12/2023 1:00 PM EST SEQUENTIAL SCREENINGS The [facility] offers sequential screenings for women who are interested in screenings for chromosomal abnormalities and certain defects during a . The sequential screen combines ultrasound and blood tests to determine the risk of chromosomal abnormalities, including Down's Syndrome (Trisomy 21) and Trisomy 18, as well as open neural tube defects including spina bifida. Ultrasound examination is performed between 11 weeks and 13 weeks gestational age. Blood tests are drawn after the ultrasound and again later in the between 15 and 21 weeks gestational age. Please let your physician know if you are interested in this testing. It will require an appointment with our security installation sales technician. This is not an ultrasound performed by a physician in our office during a routine visit. SIGNS AND SYMPTOMS OF LABOR 1. Contractions every 10 minutes or more often 2. Clear, pink, or brownish fluid (water) leaking from vagina 3. Feeling that baby is pushing down, pressure 4. Low, dull backache 5. Cramps that feel like a period 6. Cramps with or without diarrhea If you notice any of the above symptoms, contact our office at [phone] and ask to speak with a nurse. After hours, you can call doctors registry at [phone] OR call [facility] at [phone] and ask to have the doctor soft iron inspector paged. If you consider this an emergency, dial [phone] or go to your nearest emergency department. NEED HELP? Are you dealing with a violent or abusive relationship? Are you a victim of rape or sexual assult? Call [facility] ([place]) 24 hour Crisis Hotline: 639.515.8678 or 747-120-2470. MANUAL Your Guide to a Healthy manual is now on-line. Visit [email or web address] to download your free copy documented in this encounter [facility] 07-29-2023 Note HNO ID: [id number] Author: Yoselyn Lamar Ma Service: ? Author Type: ? Type: Progress Notes Filed: 07/29/2023 10:49 AM Note Text: Patient identified by name and date of . Fredrick Corin Jodie presents today for a vaccination of Tdap. Patient denies an allergy to latex: yes Patient denies a severe (life-threatening) allergy to a previous dose of Tdap, DTP, DTaP, DT or Td vaccine. Yes Patient denies history of epilepsy or neurological problems: Yes Patient is afebrile and denies being moderately or severely ill: Yes Patient denies history of Guillain-[place] Syndrome (a severe paralytic illness): Yes Tdap Adacel injection was given without incident. See immunizations for details of immunizations administered today. VIS sheet provided: Yes Provider Dr Hernández was present in office at time of injection. Yoselyn Lamar Ma [facility] 07-29-2023 Miscellaneous Notes RR- VB No. LOF No. CTXS No. Movement: present. Other c/o: No. Medication list reviewed. Physical Exam See Flow Sheet Abd: soft, nontender, gravid Ext: edema: Trace A/P 28w3d Estimated Date of Delivery: 10/18/23 Labs: 28 week labs tdap today declines lARC at delivery, likely IUD after PP exam. cont. lovenox Tra Hernández M.D. documented in this encounter [facility] 07-29-2023 History of Presen t illness Narrative Patient identified by name and date of . Fredrick Feliciano presents today for a vaccination of Tdap. Patient denies an allergy to latex: yes Patient denies a severe (life-threatening) allergy to a previous dose of Tdap, DTP, DTaP, DT or Td vaccine. Yes Patient denies history of epilepsy or neurological problems: Yes Patient is afebrile and denies being moderately or severely ill: Yes Patient denies history of Guillain-[place] Syndrome (a severe paralytic illness): Yes Tdap Adacel injection was given without incident. See immunizations for details of immunizations administered today. VIS sheet provided: Yes Provider Dr Hernández was present in office at time of injection. Yoselyn Lamar Ma documented in this encounter [facility] 07-29-2023 Instructions Yoselyn Lamar Ma - 07/29/2023 10:18 AM EST SEQUENTIAL SCREENINGS The [facility] offers sequential screenings for women who are interested in screenings for chromosomal abnormalities and certain defects during a . The sequential screen combines ultrasound and blood tests to determine the risk of chromosomal abnormalities, including Down's Syndrome (Trisomy 21) and Trisomy 18, as well as open neural tube defects including spina bifida. Ultrasound examination is performed between 11 weeks and 13 weeks gestational age. Blood tests are drawn after the ultrasound and again later in the between 15 and 21 weeks gestational age. Please let your physician know if you are interested in this testing. It will require an appointment with our security installation sales technician. This is not an ultrasound performed by a physician in our office during a routine visit. SIGNS AND SYMPTOMS OF LABOR 1. Contractions every 10 minutes or more often 2. Clear, pink, or brownish fluid (water) leaking from vagina 3. Feeling that baby is pushing down, pressure 4. Low, dull backache 5. Cramps that feel like a period 6. Cramps with or without diarrhea If you notice any of the above symptoms, contact our office at [phone] and ask to speak with a nurse. After hours, you can call doctors registry at [phone] OR call [facility] at [phone] and ask to have the doctor soft iron inspector paged. If you consider this an emergency, dial 9-1-5 or go to your nearest emergency department. NEED HELP? Are you dealing with a violent or abusive relationship? Are you a victim of rape or sexual assult? Call [facility] ([facility] 24 hour Crisis Hotline: 805.420.5163 or 613-173-8147. MANUAL Your Guide to a Healthy manual is now on-line. Visit [email or web address] to download your free copy documented in this encounter [facility] 07-01-2023 Miscellaneous Notes Fredrick Feliciano is a 33 year old female who presents at 24w3d for a routine visit. Good movement. Denies headache, visual changes, chest pain, shortness of breath, vaginal bleeding, leakage of fluid, or dysuria. Feeling well, no complaints. Size equal to dates. ASSESSMENT/PLAN: 1. Supervision of high risk in second trimester - ICD9: V23.9, ICD10: O09.92 (primary diagnosis) 2. 24 weeks gestation of - ICD9: V22.2, ICD10: Z3A.24 3. History of deep vein thrombosis (DVT) of lower extremity - ICD9: V12.51, ICD10: Z86.718 4. Mixed obsessional thoughts and acts - ICD9: 300.3, ICD10: F42.2 5. RYLEE (generalized anxiety disorder) - ICD9: 300.02, ICD10: F41.1 - Continue Zoloft 100 mg PO BID - Continue Lovenox 40 mg Daily - PTL precautions reviewed. RTC in 4 weeks for JANINE with GCT. Tracie Haro APRN.CNM documented in this encounter [facility] 07-01-2023 Instructions Blake Redding Cma - 07/01/2023 10:05 AM EDT SEQUENTIAL SCREENINGS The [facility] offers sequential screenings for women who are interested in screenings for chromosomal abnormalities and certain defects during a . The sequential screen combines ultrasound and blood tests to determine the risk of chromosomal abnormalities, including Down's Syndrome (Trisomy 21) and Trisomy 18, as well as open neural tube defects including spina bifida. Ultrasound examination is performed between 11 weeks and 13 weeks gestational age. Blood tests are drawn after the ultrasound and again later in the between 15 and 21 weeks gestational age. Please let your physician know if you are interested in this testing. It will require an appointment with our security installation sales technician. This is not an ultrasound performed by a physician in our office during a routine visit. SIGNS AND SYMPTOMS OF LABOR 1. Contractions every 10 minutes or more often 2. Clear, pink, or brownish fluid (water) leaking from vagina 3. Feeling that baby is pushing down, pressure 4. Low, dull backache 5. Cramps that feel like a period 6. Cramps with or without diarrhea If you notice any of the above symptoms, contact our office at [phone] and ask to speak with a nurse. After hours, you can call doctors registry at [phone] OR call [facility] at [phone] and ask to have the doctor soft iron inspector paged. If you consider this an emergency, dial 9-1-1 or go to your nearest emergency department. NEED HELP? Are you dealing with a violent or abusive relationship? Are you a victim of rape or sexual assult? Call [facility] ([place]) 24 hour Crisis Hotline: 897.135.7482 or 341-310-7470. MANUAL Your Guide to a Healthy manual is now on-line. Visit [email or web address] to download your free copy documented in this encounter [facility] 06-17-2023 Note HNO ID: [id number] Author: Caden Spears APRN.SOFTWARE IMPLEMENTATION PROJECT MANAGER Service: ? Author Type: Nurse Practitioner Type: Progress Notes Filed: 06/17/2023 8:32 AM Note Text: PSYC FOLLOW UP - PSYCHIATRIC PROGRESS NOTE DIAGNOSIS: OCD Generalized anxiety disorder 22 weeks -does have a history of depression with first child. Was not on any psychotropic medications at that time. GAF: -80-71 If symptoms are present, they are transient and expectable reactions to psychosocial stressors TREATMENT PLAN: Discontinue hydroxyzine due to . Patient does plan on breast-feeding. Continue Zoloft at the same dose. Discussed incorporating omega-3 fatty acids during and . Follow-up for visit in 1 week after delivering the baby girl. Discussed a plan of following up sooner if needed for any increase in symptoms during and . The effects and side effects of all her medications including the risk versus benefits of taking medication during and were reviewed in detail with the patient. She is in agreement with the treatment plan. Patient is aware to reach out with any questions, concerns, or worsening of symptoms prior to the next appointment. CC: Follow-up for psychiatric medication management. With the patient consent, visit was performed virtually. I have communicated my name and active licensure. The patient's identity and physical location were verified at the time of this visit. Either the patient or their legal sales representative livestock has been informed of the risks and benefits of -- and alternatives to -- treatment through a remote evaluation and consents to proceed with the evaluation remotely. HPI: Fredrick Feliciano is a 33 year old Female with a history of OCD and RYLEE presenting today for follow-up. Date of last visit: 11/12/2022 Plan from last visit: Continue Zoloft 200 mg. Continue Hydroxyzine as needed to help with anxiety and sleep difficulties. Follow up in June. Consider transition to primary care if patient is doing well on the current combination of her medications. Today Joslyn shares that she is expecting a baby girl. She is due October 18. The first tri-mester was rough because of the nausea. She is starting to feel better regarding that. She has been able to stay hydrated. She has not taken hydroxyzine. She is sleeping okay. She wakes up frequently to go to the bathroom. Had some stress related to gender reveal on Thursday. Has had some stress related to a co-worker. No episodes of outbursts towards and children. Her relationship with her has significantly improved. She feels that they are a team. She does plan on . Has been tolerating the Zoloft currently. Feels that she is not letting things get to her. The OCD symptoms are not overwhelming. She is able to stay more positive and not uptight. She did have post depression with her first child (son). She was not on any medications at that time. Interval Progress: Improved Risks and benefits of the medication, including any black box warnings, were discussed with the patient. Social History: See HPI PATIENT DATA: Generalized Anxiety Disorder Scale (RYLEE-7) RYLEE - 7 SCORES 08/09/2022 11/06/2022 06/11/2023 RYLEE-7 Score 6 2 3 (0-4) minimal anxiety, (5-9) mild anxiety, (10-14) moderate anxiety, (15-21) severe anxiety Patient Health Questionnaire (PHQ-9) PHQ-9 08/09/2022 11/06/2022 06/11/2023 Score 4 3 3 (0-4) minimal depression, (5-9) mild depression, (10-14) moderate depression, (15-19) moderately severe depression, (20-27) severe depression ROS: See HPI General: Negative for fever, malaise, unintentional weight loss HEENT: Negative for recent changes in vision or hearing, no nasal drainage Respiratory: Negative for cough, wheezing or SOB Cardiovascular: Negative for chest pain GI: Negative for nausea, vomiting, change in bowel habits MUSCULOSKELETAL: Negative for acute back or joint pain SKIN: Negative for rash NEURO: Negative for headaches, seizures, focal neurological deficits All other systems negative. VITAL SIGNS: BP Temp Pulse Resp SpO2 MENTAL STATUS EXAMINATION: Appearance: Appropriately groomed, appears stated age Behavior: Appropriately engaged Psychomotor: No psychomotor agitation Cognition Level of Consciousness: Awake and alert. No fluctuation in wakefulness. Orientation: Grossly oriented Memory: Intact Attention/Concentration: Good Fund of Knowledge: Able to demonstrate an awareness of current events. Mood: happy Affect: Congruent to mood Speech/Language: Appropriate tone, prosody, ekta, phonetics, and syntax Thought Form: Goal-directed. No loosening of associations. Thought Content: No delusions noted or endorsed. Perceptual Disturbances: Did not appear to respond to auditory stimuli. Safety: Suicidal Ideations: No suicidal i (more content not included)... [facility] 06-03-2023 Miscellaneous Notes DM- Pt doing well today. Denies Vaginal Bleeding, Leaking fluid, or contractions. Pt reports good movement. Continue lovenox , growth us ordered 32 weeks. Anatomy us reviewed. Flu vaccine today. Raymond Funez MD documented in this encounter [facility] 06-03-2023 Instructions Marla Gongora Ma - 06/03/2023 10:13 AM EDT SEQUENTIAL SCREENINGS The [facility] offers sequential screenings for women who are interested in screenings for chromosomal abnormalities and certain defects during a . The sequential screen combines ultrasound and blood tests to determine the risk of chromosomal abnormalities, including Down's Syndrome (Trisomy 21) and Trisomy 18, as well as open neural tube defects including spina bifida. Ultrasound examination is performed between 11 weeks and 13 weeks gestational age. Blood tests are drawn after the ultrasound and again later in the between 15 and 21 weeks gestational age. Please let your physician know if you are interested in this testing. It will require an appointment with our security installation sales technician. This is not an ultrasound performed by a physician in our office during a routine visit. SIGNS AND SYMPTOMS OF LABOR 1. Contractions every 10 minutes or more often 2. Clear, pink, or brownish fluid (water) leaking from vagina 3. Feeling that baby is pushing down, pressure 4. Low, dull backache 5. Cramps that feel like a period 6. Cramps with or without diarrhea If you notice any of the above symptoms, contact our office at [phone] and ask to speak with a nurse. After hours, you can call doctors registry at [phone] OR call [facility] at [phone] and ask to have the doctor soft iron inspector paged. If you consider this an emergency, dial 7- or go to your nearest emergency department. NEED HELP? Are you dealing with a violent or abusive relationship? Are you a victim of rape or sexual assult? Call [facility] ([place]) 24 hour Crisis Hotline: 247.712.3627 or 919-515-6690. MANUAL Your Guide to a Healthy manual is now on-line. Visit [email or web address] to download your free copy documented in this encounter [facility] 05-26-2023 Miscellaneous Notes Spoke with pt and message given and pt voiced understanding and will contact our office is any changes are noted. Marcella Zaman LPN OK to keep next week's visit. If she has any concerns prior we can work her in. Jalen Pederson MD 19w2d Patient called to schedule an ER follow up. 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 No trauma to her abdomen. She was seen at [facility] ER. Report in Epic. Has a doppler at home. Her next OB visit is 06/03/23. She is comfortable with this unless provider feels she needs seen sooner. On Lovenox. Karla Hay RN documented in this encounter [facility] 05-20-2023 Miscellaneous Notes Last: 11/12/22 Next: 06/17/23 documented in this encounter [facility] 05-06-2023 Miscellaneous Notes DM- Pt doing well today. Denies Vaginal Bleeding, Leaking fluid, or contractions. Pt reports some movement. Scheduled for anatomy. Taking Lovenox daily. RTO 4 wks. Raymond Funez MD documented in this encounter [facility] 05-06-2023 Instructions Marla Gongora Ma - 05/06/2023 10:25 AM EDT SEQUENTIAL SCREENINGS The [facility] offers sequential screenings for women who are interested in screenings for chromosomal abnormalities and certain defects during a . The sequential screen combines ultrasound and blood tests to determine the risk of chromosomal abnormalities, including Down's Syndrome (Trisomy 21) and Trisomy 18, as well as open neural tube defects including spina bifida. Ultrasound examination is performed between 11 weeks and 13 weeks gestational age. Blood tests are drawn after the ultrasound and again later in the between 15 and 21 weeks gestational age. Please let your physician know if you are interested in this testing. It will require an appointment with our security installation sales technician. This is not an ultrasound performed by a physician in our office during a routine visit. SIGNS AND SYMPTOMS OF LABOR 1. Contractions every 10 minutes or more often 2. Clear, pink, or brownish fluid (water) leaking from vagina 3. Feeling that baby is pushing down, pressure 4. Low, dull backache 5. Cramps that feel like a period 6. Cramps with or without diarrhea If you notice any of the above symptoms, contact our office at [phone] and ask to speak with a nurse. After hours, you can call doctors registry at [phone] OR call [facility] at [phone] and ask to have the doctor soft iron inspector paged. If you consider this an emergency, dial 9--4 or go to your nearest emergency department. NEED HELP? Are you dealing with a violent or abusive relationship? Are you a victim of rape or sexual assult? Call [facility] ([place]) 24 hour Crisis Hotline: 607.708.8260 or 965-323-6588. MANUAL Your Guide to a Healthy manual is now on-line. Visit [email or web address] [email or web address] to download your free copy documented in this encounter [facility] 03-27-2023 Miscellaneous Notes Pt notified of below message and voiced understanding. Pt will check with pharmacy later today. Marcella Zaman LPN ' Please let Joslyn know I got some conflicting information but finally was able to determine the current guidelines would be for prophylaxis during and . I will send in rx for her for the lovenox. She should take an extra vit d w/ calcium supplement w/ this as well. rx sent. May take a few days to get it into pharmacy but that is ok. Tra Hernández MD documented in this encounter [facility] 03-16-2023 Miscellaneous Notes Send letter about normal pap if she does not have mychart. Tra Hernández MD documented in this encounter [facility] 03-09-2023 Note HNO ID: [id number] Author: Tra Hernández MD Service: ? Author Type: Physician Type: Progress Notes Filed: 03/25/2023 11:56 AM Note Text: OB point of care ultrasound was performed. See imaging tab for details. Yoselyn Lamar Ma INITIAL OB ASSESSMENT OB Provider: Tra Hernández MD HPI: Joslyn is a 33 year old White here to establish Obstetrical Care. Patient's last menstrual period was 01/11/2023 (exact date). from OB Dating Form. Cycles regular was planned Complaints: nausea and vomiting OB History T2 L2 SAB0 IAB0 Ectopic0 Multiple0 Live Births2 Previous history: Prior : never History of 4th degree laceration: No History of shoulder dystocia: No History of Hypertensive disorders including pre-eclampsia, chronic hypertension or gestational hypertension: No History of gestational diabetes: No Patient's Risk Screening for delivery: MEDICAL/PSYCHOSOCIAL HISTORY: History of hemorrhage or bleeding concerns: No Thyroid Disease: No History of chronic hypertension: No History of pre-existing diabetes: No ABO/RH(D) Date Value Ref Range Status 02/10/2019 O POSITIVE Final BMI 24.80 kg/(m2) History of abnormal pap: No Prior treatment for cervical dysplasia: none. 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 Do you have any history of depression, anxiety, PTSD, eating disorders or other mood problems: yes anxiety- stable lately on zoloft Do you have any safety concerns or history of traumatic events that you would like to discuss with your provider: No OB Depression and Anxiety Screening- This Encounter (since 03/08/2023) None GENETIC SCREENING: Partner present: No Patient verbalized knowledge of partner family health history: No Do you or your partner have any personal or family history of defects not previously discussed: No Do you have history of a complicated by anomaly, genetic condition, or demise: No Marital Status: Partner: Name: Javier Age: 29 Occupation: [employer] Gender: Male History of STDs: None PAST MEDICAL HISTORY Diagnosis Date Chlamydia 2009 depression hsv 2 2019 Infectious mononucleosis 07/19/10 depression Strain of shoulder 07/30/2021 Vaginal delivery x2 Venous thrombosis 03/2008 Left Leg, unsure of cause, ? due to OCP PAST SURGICAL HISTORY Procedure Laterality Date DANDC, DIAG AND/OR THERAPEUTIC DANDC for AUB INSERT INTRAUTERINE DEVICE 06/19/08, 07/2013, 08/22/2021 mirena, removed 08/2016 PAST SURGICAL HISTORY OF wisdom teeth Current Outpatient Medications Medication Sig Dispense Refill prental multivitamin 27 mg iron- 800 mcg tablet Take 1 tablet by mouth once daily. sertraline (ZOLOFT) 100 mg tablet Take 2 tablets by mouth once daily. 180 tablet 2 valACYclovir (VALTREX) 1 gram once daily. hydrOXYzine HCl (ATARAX) 25 mg tablet TAKE 2 TABS BY MOUTH AT BEDTIME NEEDED FOR ANXIETY No current facility-administered medications for this visit. Allergies As of Date: 03/09/2023 Allergen Noted Reaction CLINDAMYCIN 08/08/2013 Itching Fully Assessed 03/09/2023 Does patient have penicillin allergy: No REVIEW OF SYSTEMS: GENERAL: Negative for: Fever or Chills HEENT: Negative for: Headache, Impaired Vision, Ringing in Ears, Nosebleeds NECK: Negative for: Swelling, Pain, Stiffness RESPIRATORY: Negative for: Cough, Shortness of breath, Wheezing GASTROINTESTINAL: Negative for: Heartburn, Constipation, Diarrhea, Blood in stool, some nausea and occas emesis MUSCULOSKELETAL: Negative for: Muscle or joint pain, stiffness, Joint swelling NEUROLOGIC/PSYCHIATRIC: Negative for: Weakness, Paralysis, Numbness, Tingling, Tremor, Anxiety, Depression, Memory loss SKIN: Negative for: Rash, Itching GENITOURINARY: Negative for: vaginal itching, vaginal discharge, hematuria or dysuria PHYSICAL EXAM: Ht 5' 3 (1.60m) Wt 140 lb (63.5kg) LMP 01/11/2023 BMI 24.81 kg/(m2). GENERAL: pleasant in no apparent distress DERMATOLOGY: Normal, without lesions, non-icteric, and non-hirsute NECK: Supple, full range of motion, no adenopathy, and thyroid normal CHEST: Normal inspiratory effort BREAST: soft, non-tender, symmetric, no dominant mass, normal nipple-areolar complex, no lymphadenopathy, and no nipple discharge ABDOMEN: soft, non-tender, and no masses NEURO: alert and oriented x3,exam grossly non-focal PELVIS: External genitalia normal without lesions. Perineal body intact. No vaginal or cervical lesions. Cervix closed. Uterus 8 week size. No adnexal masses or tenderness. Clinical Pelvimetry: Pelvimetry clinically (more content not included)... [facility] 03-09-2023 History of Presen t illness Narrative OB point of care ultrasound was performed. See imaging tab for details. Yoselyn Lamar Ma INITIAL OB ASSESSMENT OB Provider: Tra Hernández MD HPI: Joslyn is a 33 year old White here to establish Obstetrical Care. Patient's last menstrual period was 01/11/2023 (exact date). from OB Dating Form. Cycles regular was planned Complaints: nausea and vomiting OB History T2 L2 SAB0 IAB0 Ectopic0 Multiple0 Live Births2 Previous history: Prior : never History of 4th degree laceration: No History of shoulder dystocia: No History of Hypertensive disorders including pre-eclampsia, chronic hypertension or gestational hypertension: No History of gestational diabetes: No Patient's Risk Screening for delivery: MEDICAL/PSYCHOSOCIAL HISTORY: History of hemorrhage or bleeding concerns: No Thyroid Disease: No History of chronic hypertension: No History of pre-existing diabetes: No ABO/RH(D) Date Value Ref Range Status 02/10/2019 O POSITIVE Final BMI 24.80 kg/(m^2) History of abnormal pap: No Prior treatment for cervical dysplasia: none. 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 Do you have any history of depression, anxiety, PTSD, eating disorders or other mood problems: yes anxiety- stable lately on zoloft Do you have any safety concerns or history of traumatic events that you would like to discuss with your provider: No OB Depression and Anxiety Screening- This Encounter (since 03/08/2023) None GENETIC SCREENING: Partner present: No Patient verbalized knowledge of partner family health history: No Do you or your partner have any personal or family history of defects not previously discussed: No Do you have history of a complicated by anomaly, genetic condition, or demise: No Marital Status: Partner: Name: Javier Age: 29 Occupation: [employer] Gender: Male History of STDs: None PAST MEDICAL HISTORY Diagnosis Date Chlamydia 2009 depression hsv 2 2019 Infectious mononucleosis 07/19/10 depression Strain of shoulder 07/30/2021 Vaginal delivery x2 Venous thrombosis 03/2008 Left Leg, unsure of cause, ? due to OCP PAST SURGICAL HISTORY Procedure Laterality Date D&C, DIAG AND/OR THERAPEUTIC D&C for AUB INSERT INTRAUTERINE DEVICE 06/19/08, 07/2013, 08/22/2021 mirena, removed 08/2016 PAST SURGICAL HISTORY OF wisdom teeth Current Outpatient Medications Medication Sig Dispense Refill prental multivitamin 27 mg iron- 800 mcg tablet Take 1 tablet by mouth once daily. sertraline (ZOLOFT) 100 mg tablet Take 2 tablets by mouth once daily. 180 tablet 2 valACYclovir (VALTREX) 1 gram once daily. hydrOXYzine HCl (ATARAX) 25 mg tablet TAKE 2 TABS BY MOUTH AT BEDTIME NEEDED FOR ANXIETY No current facility-administered medications for this visit. Allergies As of Date: 03/09/2023 Allergen Noted Reaction CLINDAMYCIN 08/08/2013 Itching Fully Assessed 03/09/2023 Does patient have penicillin allergy: No REVIEW OF SYSTEMS: GENERAL: Negative for: Fever or Chills HEENT: Negative for: Headache, Impaired Vision, Ringing in Ears, Nosebleeds NECK: Negative for: Swelling, Pain, Stiffness RESPIRATORY: Negative for: Cough, Shortness of breath, Wheezing GASTROINTESTINAL: Negative for: Heartburn, Constipation, Diarrhea, Blood in stool, some nausea and occas emesis MUSCULOSKELETAL: Negative for: Muscle or joint pain, stiffness, Joint swelling NEUROLOGIC/PSYCHIATRIC: Negative for: Weakness, Paralysis, Numbness, Tingling, Tremor, Anxiety, Depression, Memory loss SKIN: Negative for: Rash, Itching GENITOURINARY: Negative for: vaginal itching, vaginal discharge, hematuria or dysuria PHYSICAL EXAM: Ht 5' 3 (1.60m) Wt 140 lb (63.5kg) LMP 01/11/2023 BMI 24.81 kg/(m^2). GENERAL: pleasant in no apparent distress DERMATOLOGY: Normal, without lesions, non-icteric, and non-hirsute NECK: Supple, full range of motion, no adenopathy, and thyroid normal CHEST: Normal inspiratory effort BREAST: soft, non-tender, symmetric, no dominant mass, normal nipple-areolar complex, no lymphadenopathy, and no nipple discharge ABDOMEN: soft, non-tender, and no masses NEURO: alert and oriented x3,exam grossly non-focal PELVIS: External genitalia normal without lesions. Perineal body intact. No vaginal or cervical lesions. Cervix closed. Uterus 8 week size. No adnexal masses or tenderness. Clinical Pelvimetry: Pelvimetry clinically assessed as adequate Limited OB ultrasound exam: single intrauterine OB Risk Screening: Completed, positive findings include: Patient answered 'Yes' to Partner with Herpes ASSESSMENT: 33 year old at 8w1d wks gestational age PLAN: 1) Patient oriented to practice. Patient given new OB orientation folder. Discussed nutrition, folic acid supplementation, dietary guidelines, exercise, smoking, alcohol, caffeine, and drug use. Discussed gestational weight gain guidelines. Discussed routine OB labs including STD/HIV. Discussed how to access Your guide to a health and the Ultrasonic Tester. Discussed aneuploidy and carrier screening. Regarding aneuploidy screening, nuchal translucency/first trimester early anatomy ultrasound and NIPT were discussed. Regarding carrier screening, the myriad screen was discussed. The risks/benefits and limitations of NIPT/aneuploidy screening were reviewed including the potential for false negative and false positive results. We discussed the availability of professional-society guided carrier screening and reviewed the conditions screened and limitations of screening. The availability of genetic counseling was reviewed. Information on aneuploidy/carrier screening was provided. The patient chooses: Aneuploidy screening: declines screening and Carrier screening: Declines 2) h/o VTE- was on prophylaxis in past for other pregnancies. Was on OCPS when had VTE age 18. Did not have antiphospholipid ab syndrome eval but factor 5, and other labs neg for thromophilia. Will d/w MFM to see if anticoagulation recommended during or just after delivery. f/u in 4 weeks or prn Follow up in 4 weeks or sooner prn. Tra Hernández MD documented in this encounter [facility] 03-09-2023 Instructions Yoselyn Lamar Ma - 03/09/2023 1:06 PM EDT Please select the following link to access the [facility] Your Guide to a Healthy . [email or web address] documented in this encounter [facility] 02-19-2023 Note HNO ID: [id number] Author: Kelley Law RN Service: ? Author Type: ? Type: Progress Notes Filed: 02/19/2023 4:53 PM Note Text: # 1 - Date: [birth year], Sex: Male, Weight: 7 lb 11 oz (3.487 kg), GA: 39w6d, Delivery: Vaginal, Spontaneous, Apgar1: 8, Apgar5: 9, Living: Living, Comments: 1st trimester bleeding,spontaneous labor,On Lovenox, 1st degree laceration, EBL 300cc # 2 - Date: 09/24/19, Sex: Female, Weight: 7 lb 1 oz (3.204 kg), GA: 39w3d, Delivery: Vaginal, Spontaneous, Apgar1: 9, Apgar5: 10, Living: Living, Comments: pitocin induction for H/O DVT on lovenox, AROM EBL 200cc # 3 - Date: None, Sex: None, Weight: None, GA: None, Delivery: None, Apgar1: None, Apgar5: None, Living: None, Comments: None [facility] 01-02-2023 Note HNO ID: [id number] Author: Perla Bennett APRN.CNP Service: ? Author Type: Nurse Practitioner Type: Progress Notes Filed: 01/02/2023 6:43 PM Note Text: This note was created using Cequintriter. Thelma Feliciano is a 32 year old female. The history is provided by the patient. No shredder picker was used. Sore Throat This is a new problem. The current episode started today. The problem has been unchanged. The maximum temperature recorded prior to her arrival was 100.4 - 100.9 F. Associated symptoms include headaches and swollen glands. Pertinent negatives include no congestion, coughing, diarrhea, ear pain, shortness of breath or vomiting. She has had no exposure to strep or mono. Treatments tried: Mucinex. Review of Systems Constitutional: Positive for chills, fatigue and fever. HENT: Positive for sore throat. Negative for congestion and ear pain. Respiratory: Negative for cough and shortness of breath. Gastrointestinal: Negative for diarrhea, nausea and vomiting. Neurological: Positive for headaches. HISTORIES PAST MEDICAL HISTORY Diagnosis Date Chlamydia 2009 hsv 2 2019 Infectious mononucleosis 07/19/10 Mental disorder Strain of shoulder 07/30/2021 Vaginal delivery x2 Venous thrombosis 03/2008 Left Leg, unsure of cause, ? due to OCP PAST SURGICAL HISTORY Procedure Laterality Date DANDC, DIAG AND/OR THERAPEUTIC DANDC for AUB INSERT INTRAUTERINE DEVICE 06/19/08, 07/2013, 08/22/2021 mirena, removed 08/2016 PAST SURGICAL HISTORY OF wisdom teeth FAMILY HISTORY Problem Relation Age of Onset Kidney Disease Mother other (colon polyp-benign) Father No Known Problems Brother No Known Problems Maternal Grandmother Heart Maternal Grandfather DC Dementia Paternal Grandmother Heart Failure Paternal Grandfather No Known Problems Son Social History Tobacco Use Smoking status: Never Smokeless tobacco: Never Vaping Use Vaping Use: Never used Substance Use Topics Alcohol use: Yes Comment: DAILY Drug use: No Current Outpatient Medications on File Prior to Visit Medication Sig sertraline (ZOLOFT) 100 mg tablet Take 2 tablets by mouth once daily. valACYclovir (VALTREX) 1 gram once daily. No current facility-administered medications on file prior to visit. ALLERGIES Allergen Reactions Clindamycin Itching HEPATITIS B(1 of 3 - 3-dose series) Never done COVID-19 VACCINE(1) Never done HPV TESTING due on 2021 I have confirmed and edited as necessary, the PFSH and ROS obtained by others. Objective BP 98/62 Pulse 106 Temp 37.5 ?C (99.5 ?F) Resp 18 Wt 64.1 kg (141 lb 6.4 oz) LMP 06/11/2021 SpO2 97% BMI 25.05 kg/m? Physical Exam Vitals and nursing note reviewed. Constitutional: General: She is not in acute distress. HENT: Head: Normocephalic. Right Ear: Tympanic membrane, ear canal and external ear normal. Left Ear: Tympanic membrane, ear canal and external ear normal. Nose: Nose normal. Mouth/Throat: Mouth: Mucous membranes are moist. Pharynx: Uvula midline. Posterior oropharyngeal erythema present. Tonsils: Tonsillar exudate present. 3+ on the right. 3+ on the left. Cardiovascular: Rate and Rhythm: Normal rate and regular rhythm. Pulmonary: Effort: Pulmonary effort is normal. Breath sounds: Normal breath sounds. Lymphadenopathy: Cervical: Cervical adenopathy present. Neurological: Mental Status: She is alert. Psychiatric: Behavior: Behavior is cooperative. ASSESSMENT/PLAN: 1. Sore throat - ICD9: 462, ICD10: J02.9 (primary diagnosis) - Alere Strep Test positive, no culture pending - Discussed supportive care treatment with fluids, rest and analgesia. - Contagious dz precautions discussed- including considered contagious until on antibiotics for 24 hours and change toothbrush - STREP A MOLECULAR (POC) 2. Strep throat - ICD9: 034.0, ICD10: J02.0 - AMOXICILLIN 875 MG TABLET -pt education along with discharge instructions given to pt -pt agreeable with plan -follow-up if symptoms don't improve in 3-5 days or get worse Perla Bennett APRN.CNP Medical Decision Making: Problems: Moderate: Acute illness with systemic symptoms Data: Unique test result(s) reviewed: 1 Unique test(s) ordered: 1 Risk: Low: Low risk from testing/treatment Moderate: Drug management Medical Decision Making Level: 4 - Moderate [facility] 01-02-2023 History of Presen t illness Narrative This note was created using Inside[employer]™. Subjective Fredrick Feliciano is a 32 year old female. The history is provided by the patient. No shredder picker was used. Sore Throat This is a new problem. The current episode started today. The problem has been unchanged. The maximum temperature recorded prior to her arrival was 100.4 - 100.9 F. Associated symptoms include headaches and swollen glands. Pertinent negatives include no congestion, coughing, diarrhea, ear pain, shortness of breath or vomiting. She has had no exposure to strep or mono. Treatments tried: Mucinex. Review of Systems Constitutional: Positive for chills, fatigue and fever. HENT: Positive for sore throat. Negative for congestion and ear pain. Respiratory: Negative for cough and shortness of breath. Gastrointestinal: Negative for diarrhea, nausea and vomiting. Neurological: Positive for headaches. HISTORIES PAST MEDICAL HISTORY Diagnosis Date Chlamydia 2009 hsv 2 2019 Infectious mononucleosis 07/19/10 Mental disorder Strain of shoulder 07/30/2021 Vaginal delivery x2 Venous thrombosis 03/2008 Left Leg, unsure of cause, ? due to OCP PAST SURGICAL HISTORY Procedure Laterality Date D&C, DIAG AND/OR THERAPEUTIC D&C for AUB INSERT INTRAUTERINE DEVICE 06/19/08, 07/2013, 08/22/2021 mirena, removed 08/2016 PAST SURGICAL HISTORY OF wisdom teeth FAMILY HISTORY Problem Relation Age of Onset Kidney Disease Mother other (colon polyp-benign) Father No Known Problems Brother No Known Problems Maternal Grandmother Heart Maternal Grandfather DC Dementia Paternal Grandmother Heart Failure Paternal Grandfather No Known Problems Son Social History Tobacco Use Smoking status: Never Smokeless tobacco: Never Vaping Use Vaping Use: Never used Substance Use Topics Alcohol use: Yes Comment: DAILY Drug use: No Current Outpatient Medications on File Prior to Visit Medication Sig sertraline (ZOLOFT) 100 mg tablet Take 2 tablets by mouth once daily. valACYclovir (VALTREX) 1 gram once daily. No current facility-administered medications on file prior to visit. ALLERGIES Allergen Reactions Clindamycin Itching HEPATITIS B(1 of 3 - 3-dose series) Never done COVID-19 VACCINE(1) Never done HPV TESTING due on 2021 I have confirmed and edited as necessary, the PFSH and ROS obtained by others. Objective BP 98/62 Pulse 106 Temp 37.5 C (99.5 F) Resp 18 Wt 64.1 kg (141 lb 6.4 oz) LMP 06/11/2021 SpO2 97% BMI 25.05 kg/m Physical Exam Vitals and nursing note reviewed. Constitutional: General: She is not in acute distress. HENT: Head: Normocephalic. Right Ear: Tympanic membrane, ear canal and external ear normal. Left Ear: Tympanic membrane, ear canal and external ear normal. Nose: Nose normal. Mouth/Throat: Mouth: Mucous membranes are moist. Pharynx: Uvula midline. Posterior oropharyngeal erythema present. Tonsils: Tonsillar exudate present. 3+ on the right. 3+ on the left. Cardiovascular: Rate and Rhythm: Normal rate and regular rhythm. Pulmonary: Effort: Pulmonary effort is normal. Breath sounds: Normal breath sounds. Lymphadenopathy: Cervical: Cervical adenopathy present. Neurological: Mental Status: She is alert. Psychiatric: Behavior: Behavior is cooperative. ASSESSMENT/PLAN: 1. Sore throat - ICD9: 462, ICD10: J02.9 (primary diagnosis) - Alere Strep Test positive, no culture pending - Discussed supportive care treatment with fluids, rest and analgesia. - Contagious dz precautions discussed- including considered contagious until on antibiotics for 24 hours and change toothbrush - STREP A MOLECULAR (POC) 2. Strep throat - ICD9: 034.0, ICD10: J02.0 - AMOXICILLIN 875 MG TABLET -pt education along with discharge instructions given to pt -pt agreeable with plan -follow-up if symptoms don't improve in 3-5 days or get worse Perla Bennett APRN.CNP Medical Decision Making: Problems: Moderate: Acute illness with systemic symptoms Data: Unique test result(s) reviewed: 1 Unique test(s) ordered: 1 Risk: Low: Low risk from testing/treatment Moderate: Drug management Medical Decision Making Level: 4 - Moderate documented in this encounter [facility] 01-02-2023 Instructions Perla Bennett APRN.CNP - 01/02/2023 6:29 PM EDT What is strep throat? Strep throat is an infection caused by a specific type of bacteria, Streptococcus. When your child has a strep throat, the tonsils are usually very inflamed, and the inflammation may affect the surrounding part of the throat as well. Symptoms Strep throat is caused by a bacterium called Streptococcus pyogenes. To some extent, the symptoms of strep throat depend on the child s age. Infants with strep infections may have only a low fever and a thickened or bloody nasal discharge. Toddlers (ages one to three) also may have a thickened or bloody nasal discharge with a fever. Such children are usually quite cranky, have no appetite, and often have swollen glands in the neck. Sometimes toddlers will complain of tummy pain instead of a sore throat. Children over three years of age with strep are often more ill; they may have an extremely painful throat, fever over 102 degrees Fahrenheit (38.9 degrees Celsius), swollen glands in the neck, and pus on the tonsils. It s important to be able to distinguish a strep throat from a viral sore throat, because strep infections are treated with antibiotics. When to call the chairman & ceo If your child has a sore throat that persists (not one that goes away after her first drink in the morning), whether or not it is accompanied by fever, headache, stomachache, or extreme fatigue, you should call your chairman & ceo. That call should be made even more urgently if your child seems extremely ill, or if she has difficulty breathing or extreme trouble swallowing (causing her to drool). This may indicate a more serious infection. Treatment If the strep test shows that your child does have strep throat, your chairman & ceo will prescribe an antibiotic to be taken by mouth or by injection. If your child is given the oral medication, it s very important that she take it for the full course, as prescribed, even if the symptoms get better or go away. If a child s strep throat is not treated with antibiotics, or if she doesn t complete the treatment, the infection may worsen or spread to other parts of her body, leading to conditions such as abscesses of the tonsils or kidney problems. Untreated strep infections also can lead to rheumatic fever, a disease that affects the heart. However, rheumatic fever is rare in the [place] and in children under five years old. Prevention Most types of throat infections are contagious, being passed primarily through the air on droplets of moisture or on the hands of infected children or adults. For that reason, it makes sense to keep your child away from people who have symptoms of this condition. However, most people are contagious before their first symptoms appear, so often there s really no practical way to prevent your child from donna the disease. In the past when a child had several sore throats, her tonsils might have been removed in an attempt to prevent further infections. But this operation, called a tonsillectomy, is recommended today only for the most severely affected children. Even in difficult cases, where there is repeated strep throat, antibiotic treatment is usually the best solution. documented in this encounter [facility] 11-28-2022 Note HNO ID: [id number] Author: Celena Walker APRN.SOFTWARE IMPLEMENTATION PROJECT MANAGER Service: ? Author Type: Nurse Practitioner Type: Progress Notes Filed: 11/28/2022 2:00 PM Note Text: Supervisor Metal Cans offered: Patient declines. Joslyn presents for removal of IUD due to desire for . UNIVERSAL PROTOCOL / SAFETY CHECKLIST Procedure to be Performed: IUD Removal Sign In: A Moment of CARE was completed. Personnel directly involved with the procedure wore the appropriate PPE (Personal Protective Equipment). Patient/Surrogate Stated/Verified: PATIENT VERIFIED(optional for EMERGENT procedures): Patient name, Date of , Relevant allergies, and The intended procedure Time Out Communication: Intended patient and procedure match the source documents. Consent documented and matches the intended procedure. Sign Out: SIGN OUT (optional for EMERGENT procedures): No specimen collected. No instruments, equipment or retained foreign bodies applicable. Post-procedure follow-up management communicated and Plan of Care Visit completed when applicable. PROCEDURE: Speculum placed in vagina, IUD string visualized and grasped with ring forceps. ASSESSMENT/PLAN: IUD removed without difficulty, intact, and patient tolerated procedure well. Contraception plans: none Reviewed pre-conception guidelines including folic acid supplementation, optimal timing of intercourse, avoidance of smoking, alcohol, exposure to environmental chemicals and need for evaluation if not within 12 months. Celena Walker APRN.[facility] [place] 11-28-2022 History of Presen t illness Narrative Supervisor Metal Cans offered: Patient declines. Joslyn presents for removal of IUD due to desire for . UNIVERSAL PROTOCOL / SAFETY CHECKLIST Procedure to be Performed: IUD Removal Sign In: A Moment of CARE was completed. Personnel directly involved with the procedure wore the appropriate PPE (Personal Protective Equipment). Patient/Surrogate Stated/Verified: PATIENT VERIFIED(optional for EMERGENT procedures): Patient name, Date of , Relevant allergies, and The intended procedure Time Out Communication: Intended patient and procedure match the source documents. Consent documented and matches the intended procedure. Sign Out: SIGN OUT (optional for EMERGENT procedures): No specimen collected. No instruments, equipment or retained foreign bodies applicable. Post-procedure follow-up management communicated and Plan of Care Visit completed when applicable. PROCEDURE: Speculum placed in vagina, IUD string visualized and grasped with ring forceps. ASSESSMENT/PLAN: IUD removed without difficulty, intact, and patient tolerated procedure well. Contraception plans: none Reviewed pre-conception guidelines including folic acid supplementation, optimal timing of intercourse, avoidance of smoking, alcohol, exposure to environmental chemicals and need for evaluation if not within 12 months. Celena Walker APRN.CNP documented in this encounter [facility] 11-12-2022 Note HNO ID: [id number] Author: Caden Spears APRN.CNP Service: ? Author Type: Nurse Practitioner Type: Progress Notes Filed: 11/12/2022 10:07 AM Note Text: PSYC FOLLOW UP - PSYCHIATRIC PROGRESS NOTE DIAGNOSIS: OCD Generalized Anxiety Disorder GAF: -80-71 If symptoms are present, they are transient and expectable reactions to psychosocial stressors TREATMENT PLAN: Continue Zoloft 200 mg. Continue Hydroxyzine as needed to help with anxiety and sleep difficulties. Follow up in June. Consider transition to primary care if patient is doing well on the current combination of her medications. The effects and side effects of all the medications were reviewed in detail with the patient. She is in agreement with the treatment plan and aware to reach out with any questions, concerns, or worsening of symptoms prior to the next appointment. CC: Follow up regarding anxiety With the patient consent, visit was performed virtually. HPI: Fredrick Feliciano is a 32 year old Female with a history of OCD and RYLEE presenting today for follow-up. Date of last visit: 08/13/2022 Plan from last visit: Continue Zoloft and Hydroxyzine at the same dose. Consider transfer of care to PCP if patient continues to do well on this combination of medications at the next appointment. Follow up in 3 months. Today Joslyn shares that she is doing well. Holidays went well. They had visits from family. All the family members got sick after the holidays. 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 Life has been hectic but she feels that it is manageable. She was under a lot of stress and noticed that she had increase in anxiety and irritability. Some work related stress related to a new co-worker. She increased Zoloft to 200 mg around September. She denies any side effects with the increase in dose. She has noticed an improvement with her OCD symptoms as well as anxiety and irritability. She has some stress related to her 5 year old son. Son throws a temper tantrum when they ask him to put away the electronic tablet. He has been acting out. Shares that mother in law went behind their back and got the kids tablets for the holidays. Her son will be starting Kindergarten in April. She is trying to keep herself calm. Her daughter has been helping with cleaning and laundry. Things are going really well in her relationship with her . They have been talking about a 3rd child. Their communication has improved and she feels that they have become a stronger unit. attributes that to the patient being on medication. She has been taking Hydroxyzine only as needed which has been helpful for her anxiety and sleep. Interval Progress: Improved Risks and benefits of the medication, including any black box warnings, were discussed with the patient. Social History: See HPI PATIENT DATA: Generalized Anxiety Disorder Scale (RYLEE-7) RYLEE - 7 SCORES 06/11/2022 08/09/2022 11/06/2022 RYLEE-7 Score 5 6 2 (0-4) minimal anxiety, (5-9) mild anxiety, (10-14) moderate anxiety, (15-21) severe anxiety Patient Health Questionnaire (PHQ-9) PHQ-9 06/11/2022 08/09/2022 11/06/2022 Score 5 4 3 (0-4) minimal depression, (5-9) mild depression, (10-14) moderate depression, (15-19) moderately severe depression, (20-27) severe depression ROS: General: Negative for fever, malaise, unintentional weight loss HEENT: Negative for recent changes in vision or hearing, no nasal drainage Respiratory: Negative for cough, wheezing or SOB Cardiovascular: Negative for chest pain GI: Negative for nausea, vomiting, change in bowel habits MUSCULOSKELETAL: Negative for acute back or joint pain SKIN: Negative for rash NEURO: Negative for headaches, seizures, focal neurological deficits All other systems negative. VITAL SIGNS: BP Temp Pulse Resp SpO2 MENTAL STATUS EXAMINATION: Appearance: Appropriately groomed, appears stated age Behavior: Appropriately engaged Psychomotor: No psychomotor agitation Cognition Level of Consciousness: Awake and alert. No fluctuation in wakefulness. Orientation: Grossly oriented Memory: Intact Attention/Concentration: Good Fund of Knowledge: Able to demonstrate an awareness of current events. Mood: Euthymic Affect: Congruent to mood Speech/Language: Appropriate tone, prosody, ekta, phonetics, and syntax Thought Form: Goal-directed. No loosening of associations. Thought Content: No delusions noted or endorsed. Perceptual Disturbances: Did not appear to respond to auditory stimuli. Safety: Suicidal Ideations: No suicidal ideation, intent or plan. Homicidal Ideations: No homicidal ideation, intent or plan. Insight: Appropriate Judgment: Appropriate I spent a total of 26 minutes on the date of the service which included preparing to see the patient, [id number] patient care, completing clinical documentation, and counseling and educating the patient/family/care (more content not included)... [facility] 11-12-2022 History of Presen t illness Narrative Images from the original note were not included. PSYC FOLLOW UP - PSYCHIATRIC PROGRESS NOTE DIAGNOSIS: OCD Generalized Anxiety Disorder GAF: -80-71 If symptoms are present, they are transient and expectable reactions to psychosocial stressors TREATMENT PLAN: Continue Zoloft 200 mg. Continue Hydroxyzine as needed to help with anxiety and sleep difficulties. Follow up in June. Consider transition to primary care if patient is doing well on the current combination of her medications. The effects and side effects of all the medications were reviewed in detail with the patient. She is in agreement with the treatment plan and aware to reach out with any questions, concerns, or worsening of symptoms prior to the next appointment. CC: Follow up regarding anxiety With the patient consent, visit was performed virtually. HPI: Fredrick Feliciano is a 32 year old Female with a history of OCD and RYLEE presenting today for follow-up. Date of last visit: 08/13/2022 Plan from last visit: Continue Zoloft and Hydroxyzine at the same dose. Consider transfer of care to PCP if patient continues to do well on this combination of medications at the next appointment. Follow up in 3 months. Today Joslyn shares that she is doing well. Holidays went well. They had visits from family. All the family members got sick after the holidays. 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 Life has been hectic but she feels that it is manageable. She was under a lot of stress and noticed that she had increase in anxiety and irritability. Some work related stress related to a new co-worker. She increased Zoloft to 200 mg around September. She denies any side effects with the increase in dose. She has noticed an improvement with her OCD symptoms as well as anxiety and irritability. She has some stress related to her 5 year old son. Son throws a temper tantrum when they ask him to put away the electronic tablet. He has been acting out. Shares that mother in law went behind their back and got the kids tablets for the holidays. Her son will be starting Kindergarten in April. She is trying to keep herself calm. Her daughter has been helping with cleaning and laundry. Things are going really well in her relationship with her . They have been talking about a 3rd child. Their communication has improved and she feels that they have become a stronger unit. attributes that to the patient being on medication. She has been taking Hydroxyzine only as needed which has been helpful for her anxiety and sleep. Interval Progress: Improved Risks and benefits of the medication, including any black box warnings, were discussed with the patient. Social History: See HPI PATIENT DATA: Generalized Anxiety Disorder Scale (RYLEE-7) RYLEE - 7 SCORES 06/11/2022 08/09/2022 11/06/2022 RYLEE-7 Score 5 6 2 (0-4) minimal anxiety, (5-9) mild anxiety, (10-14) moderate anxiety, (15-21) severe anxiety Patient Health Questionnaire (PHQ-9) PHQ-9 06/11/2022 08/09/2022 11/06/2022 Score 5 4 3 (0-4) minimal depression, (5-9) mild depression, (10-14) moderate depression, (15-19) moderately severe depression, (20-27) severe depression ROS: General: Negative for fever, malaise, unintentional weight loss HEENT: Negative for recent changes in vision or hearing, no nasal drainage Respiratory: Negative for cough, wheezing or SOB Cardiovascular: Negative for chest pain GI: Negative for nausea, vomiting, change in bowel habits MUSCULOSKELETAL: Negative for acute back or joint pain SKIN: Negative for rash NEURO: Negative for headaches, seizures, focal neurological deficits All other systems negative. VITAL SIGNS: BP Temp Pulse Resp SpO2 MENTAL STATUS EXAMINATION: Appearance: Appropriately groomed, appears stated age Behavior: Appropriately engaged Psychomotor: No psychomotor agitation Cognition Level of Consciousness: Awake and alert. No fluctuation in wakefulness. Orientation: Grossly oriented Memory: Intact Attention/Concentration: Good Fund of Knowledge: Able to demonstrate an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 Medication: - Zoloft 50 mg - take 1/2 tablet once daily for 7 days, then take 1 tablet once daily after that. The effects and side effects of Zoloft were reviewed in detail with the patient. She is in agreement with the treatment plan. She is aware to reach out with any questions, concerns, or worsening of symptoms prior to the next appointment. DISPOSITION: Follow up with this provider in 4 weeks. I spent a total of 90 minutes on the date of the service which included preparing to see the patient, [id number] patient care, completing clinical documentation, obtaining and/or reviewing separately obtained history, performing a medically appropriate examination, counseling and educating the patient/family/caregiver, ordering medications, tests, or procedures, independently interpreting results (not separately reported) and communicating results to the patient/family/caregiver. ADD ON PSYCHOTHERAPY CODE : No SIGNATURE: Caden Spears APRN.CNP PATIENT NAME: Fredrick Feliciano DATE: March 05, 2022 TIME: 8:38 AM PAGER : documented in this encounter [facility] documented as of this encounter (statuses as of 03/05/2022) [facility]09-13-2019 History of Past illness Narrative* Problem Noted Date Resolved Date Low-lying placenta 05/27/2019 08/18/2019 Overview: 06/17/19-Placenta posterior and no longer low lying. Allyssa Pemberton APRN.CHANDRIKAM Supervision of high risk in first trim abbe 02/10/2019 07/30/2021 High-risk in third trimester 7 08/13/2017 Spotting during 10/09/20162016 Overview: 10/09/2016Patient states she had one day of spotting 09/27. She denies any intercourse prior to the bleeding. She denies any pelvic pain this . She denies any further bleeding.TKRN History of depression 10/09/2016 07/14/2017 Overview: 02/10/2019 Pt has a history of depression diagnosed at age 13. She has been off medication since age 15 . Denies depression. Discussed increased risks of depression during and and importance of reporting the development or worsening of symptoms should they occur.Pt states she had suicidal thoughts at age 15.She denies any suicidal thoughts since then. She denies any psychiatric hospitalizations. TKRN documented as of this encounter (statuses as of 03/31/2022) [facility]2019 History of Past illness Narrative* Problem Noted Date Resolved Date Low-lying placenta 05/27/2019 08/18/2019 Overview: 06/17/19-Placenta posterior and no longer low lying. Allyssa Pemberton APRN.RUTH Supervision of high risk in first trim abbe 02/10/2019 07/30/2021 High-risk in third trimester 7 08/13/2017 Spotting during 10/09/20162016 Overview: 10/09/2016Patient states she had one day of spotting 09/27. She denies any intercourse prior to the bleeding. She denies any pelvic pain this . She denies any further bleeding.TKRN History of depression 10/09/2016 07/14/2017 Overview: 02/10/2019 Pt has a history of depression diagnosed at age 13. She has been off medication since age 15 . Denies depression. Discussed increased risks of depression during and and importance of reporting the development or worsening of symptoms should they occur.Pt states she had suicidal thoughts at age 15.She denies any suicidal thoughts since then. She denies any psychiatric hospitalizations. TKRN documented as of this encounter (statuses as of 04/04/2022) [facility] History of Past illness Narrative* Problem Noted Date Resolved Date Low-lying placenta 05/27/2019 08/18/2019 Overview: 06/17/19-Placenta posterior and no longer low lying. Allyssa Pemberton APRN.RUTH Supervision of high risk in first trim abbe 02/10/2019 07/30/2021 High-risk in third trimester 7 08/13/2017 Spotting during 10/09/20162016 Overview: 10/09/2016Patient states she had one day of spotting 09/27. She denies any intercourse prior to the bleeding. She denies any pelvic pain this . She denies any further bleeding.TKRN History of depression 10/09/2016 07/14/2017 Overview: 02/10/2019 Pt has a history of depression diagnosed at age 13. She has been off medication since age 15 . Denies depression. Discussed increased risks of depression during and and importance of reporting the development or worsening of symptoms should they occur.Pt states she had suicidal thoughts at age 15.She denies any suicidal thoughts since then. She denies any psychiatric hospitalizations. TKRN documented as of this encounter (statuses as of 04/28/2022) [facility]2019 History of Past illness Narrative* Problem Noted Date Resolved Date Low-lying placenta 05/27/2019 08/18/2019 Overview: 06/17/19-Placenta posterior and no longer low lying. Allyssa Pemberton APRN.RUTH Supervision of high risk in first trim abbe 02/10/2019 07/30/2021 High-risk in third trimester 7 08/13/2017 Spotting during 10/09/20162016 Overview: 10/09/2016Patient states she had one day of spotting 09/27. She denies any intercourse prior to the bleeding. She denies any pelvic pain this . She denies any further bleeding.TKRN History of depression 10/09/2016 07/14/2017 Overview: 02/10/2019 Pt has a history of depression diagnosed at age 13. She has been off medication since age 15 . Denies depression. Discussed increased risks of depression during and and importance of reporting the development or worsening of symptoms should they occur.Pt states she had suicidal thoughts at age 15.She denies any suicidal thoughts since then. She denies any psychiatric hospitalizations. [facility] documented as of this encounter (statuses as of 05/05/2022) [facility] History of Past illness Narrative* Problem Noted Date Resolved Date Low-lying placenta 05/27/2019 08/18/2019 Overview: 06/17/19-Placenta posterior and no longer low lying. Allyssa Pemberton APRN.CNM Supervision of high risk in first trim abbe 02/10/2019 07/30/2021 High-risk in third trimester 7 08/13/2017 Spotting during 10/09/20162016 Overview: 10/09/2016Patient states she had one day of spotting 09/27. She denies any intercourse prior to the bleeding. She denies any pelvic pain this . She denies any further bleeding.TKRN History of depression 10/09/2016 07/14/2017 Overview: 02/10/2019 Pt has a history of depression diagnosed at age 13. She has been off medication since age 15 . Denies depression. Discussed increased risks of depression during and and importance of reporting the development or worsening of symptoms should they occur.Pt states she had suicidal thoughts at age 15.She denies any suicidal thoughts since then. She denies any psychiatric hospitalizations. T[facility]N documented as of this encounter (statuses as of 05/12/2022) [facility] History of Past illness Narrative* Problem Noted Date Resolved Date Low-lying placenta 05/27/2019 08/18/2019 Overview: 06/17/19-Placenta posterior and no longer low lying. Allyssa Pemberton APRN.RUTH Supervision of high risk in first trim abbe 02/10/2019 07/30/2021 High-risk in third trimester 7 08/13/2017 Spotting during 10/09/20162016 Overview: 10/09/2016Patient states she had one day of spotting 09/27. She denies any intercourse prior to the bleeding. She denies any pelvic pain this . She denies any further bleeding.TKRN History of depression 10/09/2016 07/14/2017 Overview: 02/10/2019 Pt has a history of depression diagnosed at age 13. She has been off medication since age 15 . Denies depression. Discussed increased risks of depression during and and importance of reporting the development or worsening of symptoms should they occur.Pt states she had suicidal thoughts at age 15.She denies any suicidal thoughts since then. She denies any psychiatric hospitalizations. T[facility] documented as of this encounter (statuses as of 05/27/2022) [facility] History of Past illness Narrative* Problem Noted Date Resolved Date Low-lying placenta 05/27/2019 08/18/2019 Overview: 06/17/19-Placenta posterior and no longer low lying. Allyssa Pemberton APRN.RUTH Supervision of high risk in first trim abbe 02/10/2019 07/30/2021 High-risk in third trimester 7 08/13/2017 Spotting during 10/09/20162016 Overview: 10/09/2016Patient states she had one day of spotting 09/27. She denies any intercourse prior to the bleeding. She denies any pelvic pain this . She denies any further bleeding.TKRN History of depression 10/09/2016 07/14/2017 Overview: 02/10/2019 Pt has a history of depression diagnosed at age 13. She has been off medication since age 15 . Denies depression. Discussed increased risks of depression during and and importance of reporting the development or worsening of symptoms should they occur.Pt states she had suicidal thoughts at age 15.She denies any suicidal thoughts since then. She denies any psychiatric hospitalizations. TKRN documented as of this encounter (statuses as of 07/07/2022) [facility] History of Past illness Narrative* Problem Noted Date Resolved Date Low-lying placenta 05/27/2019 08/18/2019 Overview: 06/17/19-Placenta posterior and no longer low lying. Allyssa Pemberton APRN.RUTH Supervision of high risk in first trim abbe 02/10/2019 07/30/2021 High-risk in third trimester 7 08/13/2017 Spotting during 10/09/20162016 Overview: 10/09/2016Patient states she had one day of spotting 09/27. She denies any intercourse prior to the bleeding. She denies any pelvic pain this . She denies any further bleeding.TKRN History of depression 10/09/2016 07/14/2017 Overview: 02/10/2019 Pt has a history of depression diagnosed at age 13. She has been off medication since age 15 . Denies depression. Discussed increased risks of depression during and and importance of reporting the development or worsening of symptoms should they occur.Pt states she had suicidal thoughts at age 15.She denies any suicidal thoughts since then. She denies any psychiatric hospitalizations. T[facility] documented as of this encounter (statuses as of 08/05/2022) [facility] History of Past illness Narrative* Problem Noted Date Resolved Date Low-lying placenta 05/27/2019 08/18/2019 Overview: 06/17/19-Placenta posterior and no longer low lying. Allyssa Pemberton APRN.CHANDRIKAM Supervision of high risk in first trim abbe 02/10/2019 07/30/2021 High-risk in third trimester 7 08/13/2017 Spotting during 10/09/20162016 Overview: 10/09/2016Patient states she had one day of spotting 09/27. She denies any intercourse prior to the bleeding. She denies any pelvic pain this . She denies any further bleeding.TKRN History of depression 10/09/2016 07/14/2017 Overview: 02/10/2019 Pt has a history of depression diagnosed at age 13. She has been off medication since age 15 . Denies depression. Discussed increased risks of depression during and and importance of reporting the development or worsening of symptoms should they occur.Pt states she had suicidal thoughts at age 15.She denies any suicidal thoughts since then. She denies any psychiatric hospitalizations. [facility] documented as of this encounter (statuses as of 08/20/2022) [facility] History of Past illness Narrative* Problem Noted Date Resolved Date Low-lying placenta 05/27/2019 08/18/2019 Overview: 06/17/19-Placenta posterior and no longer low lying. Allyssa Pemberton APRN.RUTH Supervision of high risk in first trim abbe 02/10/2019 07/30/2021 High-risk in third trimester 7 08/13/2017 Spotting during 10/09/20162016 Overview: 10/09/2016Patient states she had one day of spotting 09/27. She denies any intercourse prior to the bleeding. She denies any pelvic pain this . She denies any further bleeding.TKRN History of depression 10/09/2016 07/14/2017 Overview: 02/10/2019 Pt has a history of depression diagnosed at age 13. She has been off medication since age 15 . Denies depression. Discussed increased risks of depression during and and importance of reporting the development or worsening of symptoms should they occur.Pt states she had suicidal thoughts at age 15.She denies any suicidal thoughts since then. She denies any psychiatric hospitalizations. [facility] documented as of this encounter (statuses as of 11/12/2022) [facility] History of Past illness Narrative* Problem Noted Date Resolved Date Low-lying placenta 05/27/2019 08/18/2019 Overview: 06/17/19-Placenta posterior and no longer low lying. Allyssa Pemberton APRN.RUTH Supervision of high risk in first trim abbe 02/10/2019 07/30/2021 High-risk in third trimester 7 08/13/2017 Spotting during 10/09/20162016 Overview: 10/09/2016Patient states she had one day of spotting 09/27. She denies any intercourse prior to the bleeding. She denies any pelvic pain this . She denies any further bleeding.TKRN History of depression 10/09/2016 07/14/2017 Overview: 02/10/2019 Pt has a history of depression diagnosed at age 13. She has been off medication since age 15 . Denies depression. Discussed increased risks of depression during and and importance of reporting the development or worsening of symptoms should they occur.Pt states she had suicidal thoughts at age 15.She denies any suicidal thoughts since then. She denies any psychiatric hospitalizations. TKR[facility] documented as of this encounter (statuses as of 11/28/2022) [facility] History of Past illness Narrative* Problem Noted Date Resolved Date Low-lying placenta 05/27/2019 08/18/2019 Overview: 06/17/19-Placenta posterior and no longer low lying. Allyssa Pemberton APRN.RUTH Supervision of high risk in first trim abbe 02/10/2019 07/30/2021 High-risk in third trimester 7 08/13/2017 Spotting during 10/09/20162016 Overview: 10/09/2016Patient states she had one day of spotting 09/27. She denies any intercourse prior to the bleeding. She denies any pelvic pain this . She denies any further bleeding.TKRN History of depression 10/09/2016 07/14/2017 Overview: 02/10/2019 Pt has a history of depression diagnosed at age 13. She has been off medication since age 15 . Denies depression. Discussed increased risks of depression during and and importance of reporting the development or worsening of symptoms should they occur.Pt states she had suicidal thoughts at age 15.She denies any suicidal thoughts since then. She denies any psychiatric hospitalizations. [facility] documented as of this encounter (statuses as of 01/03/2023) [facility] History of Past illness Narrative* Problem Noted Date Resolved Date Low-lying placenta 05/27/2019 08/18/2019 Overview: 06/17/19-Placenta posterior and no longer low lying. Allyssa Pemberton APRN.CNM Supervision of high risk in first trim abbe 02/10/2019 07/30/2021 High-risk in third trimester 7 08/13/2017 Spotting during 10/09/20162016 Overview: 10/09/2016Patient states she had one day of spotting 09/27. She denies any intercourse prior to the bleeding. She denies any pelvic pain this . She denies any further bleeding.TKRN documented as of this encounter (statuses as of 03/09/2023) [facility] History of Past illness Narrative* Problem Noted Date Diagnosed Date Resolved Date Low-lying placenta 05/27/2019 9 Overview: 06/17/19-Placenta posterior and no longer low lying. Allyssa Pemberton APRN.CNM Supervision of high risk pre gnancy in first trimester 02/10/2019 07/30/2021 High-risk in third trimester 05/19/2017 08/13/2017 Spotting during 10/09/2016 Overview: 10/09/2016Patient states she had one day of spotting 09/27. She denies any intercourse prior to the bleeding. She denies any pelvic pain this . She denies any further bleeding.TKRN documented as of this encounter (statuses as of 03/25/2023) [facility] History of Past illness Narrative* Problem Noted Date Diagnosed Date Resolved Date Low-lying placenta 05/27/2019 9 Overview: 06/17/19-Placenta posterior and no longer low lying. Allyssa Pemberton APRN.CNM Supervision of high risk pre gnancy in first trimester 02/10/2019 07/30/2021 High-risk in third trimester 05/19/2017 08/13/2017 Spotting during 10/09/2016 Overview: 10/09/2016Patient states she had one day of spotting 09/27. She denies any intercourse prior to the bleeding. She denies any pelvic pain this . She denies any further bleeding.TKRN documented as of this encounter (statuses as of 03/27/2023) [facility] History of Past illness Narrative* Problem Noted Date Diagnosed Date Resolved Date Low-lying placenta 05/27/2019 9 Overview: 06/17/19-Placenta posterior and no longer low lying. Allyssa Pemberton APRN.CNM Supervision of high risk pre gnancy in first trimester 02/10/2019 07/30/2021 High-risk in third trimester 05/19/2017 08/13/2017 Spotting during 10/09/2016 Overview: 10/09/2016Patient states she had one day of spotting 09/27. She denies any intercourse prior to the bleeding. She denies any pelvic pain this . She denies any further bleeding.TKRN documented as of this encounter (statuses as of 03/27/2023) [facility] History of Past illness Narrative* Problem Noted Date Diagnosed Date Resolved Date Low-lying placenta 05/27/2019 9 Overview: 06/17/19-Placenta posterior and no longer low lying. Allyssa Pemberton APRN.CNM Supervision of high risk pre gnancy in first trimester 02/10/2019 07/30/2021 High-risk in third trimester 05/19/2017 08/13/2017 Spotting during 10/09/2016 Overview: 10/09/2016Patient states she had one day of spotting 09/27. She denies any intercourse prior to the bleeding. She denies any pelvic pain this . She denies any further bleeding.TKRN documented as of this encounter (statuses as of 03/27/2023) [facility] History of Past illness Narrative* Problem Noted Date Diagnosed Date Resolved Date Low-lying placenta 05/27/2019 9 Overview: 06/17/19-Placenta posterior and no longer low lying. Allyssa Pemberton APRN.CNM Supervision of high risk pre gnancy in first trimester 02/10/2019 07/30/2021 High-risk in third trimester 05/19/2017 08/13/2017 Spotting during 10/09/2016 Overview: 10/09/2016Patient states she had one day of spotting 09/27. She denies any intercourse prior to the bleeding. She denies any pelvic pain this . She denies any further bleeding.TKRN documented as of this encounter (statuses as of 04/29/2023) [facility] History of Past illness Narrative* Problem Noted Date Diagnosed Date Resolved Date Low-lying placenta 05/27/2019 9 Overview: 06/17/19-Placenta posterior and no longer low lying. Allyssa Pemberton APRN.CNM Supervision of high risk pre gnancy in first trimester 02/10/2019 07/30/2021 High-risk in third trimester 05/19/2017 08/13/2017 Spotting during 10/09/2016 Overview: 10/09/2016Patient states she had one day of spotting 09/27. She denies any intercourse prior to the bleeding. She denies any pelvic pain this . She denies any further bleeding.TKRN documented as of this encounter (statuses as of 05/06/2023) [facility] History of Past illness Narrative* Problem Noted Date Diagnosed Date Resolved Date Low-lying placenta 05/27/2019 9 Overview: 06/17/19-Placenta posterior and no longer low lying. Allyssa Pemberton APRN.CNM Supervision of high risk pre gnancy in first trimester 02/10/2019 07/30/2021 High-risk in third trimester 05/19/2017 08/13/2017 Spotting during 10/09/2016 Overview: 10/09/2016Patient states she had one day of spotting 09/27. She denies any intercourse prior to the bleeding. She denies any pelvic pain this . She denies any further bleeding.TKRN documented as of this encounter (statuses as of 05/20/2023) [address]13-2019 History of Past illness Narrative* Problem Noted Date Diagnosed Date Resolved Date Low-lying placenta 05/27/2019 9 Overview: 06/17/19-Placenta posterior and no longer low lying. Allyssa Pemberton APRN.CNM Supervision of high risk pre gnancy in first trimester 02/10/2019 07/30/2021 High-risk in third trimester 05/19/2017 08/13/2017 Spotting during 10/09/2016 Overview: 10/09/2016Patient states she had one day of spotting 09/27. She denies any intercourse prior to the bleeding. She denies any pelvic pain this . She denies any further bleeding.TKRN documented as of this encounter (statuses as of 05/21/2023) [facility] History of Past illness Narrative* Problem Noted Date Diagnosed Date Resolved Date Low-lying placenta 05/27/2019 9 Overview: 06/17/19-Placenta posterior and no longer low lying. Allyssa Pemberton APRN.CNM Supervision of high risk pre gnancy in first trimester 02/10/2019 07/30/2021 High-risk in third trimester 05/19/2017 08/13/2017 Spotting during 10/09/2016 Overview: 10/09/2016Patient states she had one day of spotting 09/27. She denies any intercourse prior to the bleeding. She denies any pelvic pain this . She denies any further bleeding.TKRN documented as of this encounter (statuses as of 05/26/2023) [facility] History of Past illness Narrative* Problem Noted Date Diagnosed Date Resolved Date Low-lying placenta 05/27/2019 9 Overview: 06/17/19-Placenta posterior and no longer low lying. Allyssa Pemberton APRN.CNM Supervision of high risk pre gnancy in first trimester 02/10/2019 07/30/2021 High-risk in third trimester 05/19/2017 08/13/2017 Spotting during 10/09/2016 Overview: 10/09/2016Patient states she had one day of spotting 09/27. She denies any intercourse prior to the bleeding. She denies any pelvic pain this . She denies any further bleeding.TKRN documented as of this encounter (statuses as of 06/03/2023) [facility] History of Past illness Narrative* Problem Noted Date Diagnosed Date Resolved Date Low-lying placenta 05/27/2019 9 Overview: 06/17/19-Placenta posterior and no longer low lying. Allyssa Pemberton APRN.CNM Supervision of high risk pre gnancy in first trimester 02/10/2019 07/30/2021 High-risk in third trimester 05/19/2017 08/13/2017 Spotting during 10/09/2016 Overview: 10/09/2016Patient states she had one day of spotting 09/27. She denies any intercourse prior to the bleeding. She denies any pelvic pain this . She denies any further bleeding.TKRN documented as of this encounter (statuses as of 07/01/2023) [facility] History of Past illness Narrative* Problem Noted Date Diagnosed Date Resolved Date Low-lying placenta 05/27/2019 9 Overview: 06/17/19-Placenta posterior and no longer low lying. Allyssa Pemberton APRN.CNM Supervision of high risk pre gnancy in first trimester 02/10/2019 07/30/2021 High-risk in third trimester 05/19/2017 08/13/2017 Spotting during 10/09/2016 Overview: 10/09/2016Patient states she had one day of spotting 09/27. She denies any intercourse prior to the bleeding. She denies any pelvic pain this . She denies any further bleeding.TKRN documented as of this encounter (statuses as of 07/29/2023) [facility] History of Past illness Narrative* Problem Noted Date Diagnosed Date Resolved Date Low-lying placenta 05/27/2019 9 Overview: 06/17/19-Placenta posterior and no longer low lying. Allyssa Pemberton APRN.RUTH Supervision of high risk pre gnancy in first trimester 02/10/2019 07/30/2021 High-risk in third trimester 05/19/2017 08/13/2017 Spotting during 10/09/2016 Overview: 10/09/2016Patient states she had one day of spotting 09/27. She denies any intercourse prior to the bleeding. She denies any pelvic pain this . She denies any further bleeding.TKRN documented as of this encounter (statuses as of 08/12/2023) [facility] Diagnosis RYLEE (generalized anxiety disorder)- Primary Generalized anxiety disorder Mixed obsessional thoughts and acts Stress due to marital problems Counseling for marital and partner problems, unspecified [facility] Diagnosis Mixed obsessional thoughts and acts- Primary RYLEE (generalized anxiety disorder) Generalized anxiety disorder Stress due to marital problems Counseling for marital and partner problems, unspecified [facility] Diagnosis Mixed obsessional thoughts and acts- Primary RYLEE (generalized anxiety disorder) Generalized anxiety disorder [facility] Diagnosis Mixed obsessional thoughts and acts- Primary RYLEE (generalized anxiety disorder) Generalized anxiety disorder [facility] Diagnosis Encounter for IUD removal- Primary Encounter for removal of intrauterine contraceptive device [facility] Diagnosis Sore throat- Primary Acute pharyngitis Strep throat Streptococcal sore throat [facility] Diagnosis with uncertain dates in first trimester- Primary [facility] Diagnosis Encounter for supervision of other normal in first trimester- Primary with uncertain dates in first trimester History of blood clots Personal history of venous thrombosis and embolism History of depression, currently with other poor obstetric history [facility] Diagnosis Acute vaginitis Vaginitis and vulvovaginitis, unspecified [facility] Diagnosis Vulval lesion Other 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 [facility] Diagnosis History of blood clots- Primary Personal history of venous thrombosis and embolism Encounter for supervision of other normal in first trimester [facility] Diagnosis Supervision of high risk in second trimester- Primary Unspecified high-risk 16 weeks gestation of state, incidental History of blood clots Personal history of venous thrombosis and embolism [facility] Diagnosis Encounter for anatomic survey- Primary Encntr for suprvsn of normal preg, unsp, second trimester 18 weeks gestation of state, incidental [facility] Diagnosis Supervision of high risk in second trimester- Primary Unspecified high-risk History of deep vein thrombosis (DVT) of lower extremity 20 weeks gestation of state, incidental Need for influenza vaccination Need for prophylactic vaccination and inoculation against influenza [facility] Diagnosis Supervision of high risk in second trimester- Primary Unspecified high-risk 24 weeks gestation of state, incidental History of deep vein thrombosis (DVT) of lower extremity Mixed obsessional thoughts and acts RYLEE (generalized anxiety disorder) Generalized anxiety disorder [facility] Diagnosis History of deep vein thrombosis (DVT) of lower extremity- Primary 28 weeks gestation of state, incidental Need for vaccination Need for prophylactic vaccination and inoculation against unspecified single disease [facility] Diagnosis 30 weeks gestation of - Primary state, incidental History of deep vein thrombosis (DVT) of lower extremity Supervision of high risk in second trimester Unspecified high-risk Mixed obsessional thoughts and acts RYLEE (generalized anxiety disorder) Generalized anxiety disorder documented in this encounter [facility] for referral (narrative)* Outpatient Procedure (Routine) - Pending Review Specialty Diagnoses / Procedures Referred By Ronn love [place]erred [place] [facility] [place] Encounter for IUD removal Procedures REMOVE INTRAUTERINE DEVICE REMOVE INTRAUTERINE DEVICE Celena Walker, OFFICE HELPER.SOFTWARE IMPLEMENTATION PROJECT MANAGER [address] [place] [address] [facility] [address] [place] [address] Referral ID Status Reason Start Date Expiration Date Visits Requested Visits Authorized [id number] Pending Review Auto-Generat ed Referral 11/28/2022 11/28/2023 1 1 [facility] Diagnostic Procedure Only (Routine) - Pending Review Specialty Diagnoses / Procedures Referred By Contsushila t Referred To Contact [facility] [place] Diagnoses History of deep vein thrombosis (DVT) of lower extremity Procedures OBSTETRIC ULTRASOUND WHI US PREG UTERUS AFTER 1ST TRIMEST GESTATION Raymond Vann MD [address] [place] [address] [facility] [address] [place] [address] Referral ID Status Reason Start Date Expiration Date Visits Requested Visits Authorized [id number] Pending Review Auto-Generat ed Referral 06/03/2023 06/02/2024 1 1 [facility] Health Concerns Problem Noted Date [facility] - [place] 02/13 [place] - [place] 03/09/2023 Problem Noted Date Diagnosed Date [facility] - [facility] 03/09/2023 [place] - [place] 03/09/2023 Infection Onset Date Last Indicated Resolved Time COVID-19 Rule-Out 02/15/2021 02/15/2021 02/17/2021 5:54 AM EDT Problem Noted Date Diagnosed Date [facility] - [facility] 03/09/2023 [place] - [place] 03/09/2023 Problem Noted Date Diagnosed Date [facility] Education - COMMON 03/09/2023 [place] - [place] 03/09/2023 Problem Noted Date Diagnosed Date [facility] - [facility] 03/09/2023 [place] - [place] 03/09/2023 Problem Noted Date Diagnosed Date [facility] - [facility] 03/09/2023 [place] - [place] 03/09/2023 Problem Noted Date Diagnosed Date [facility] - [facility] 03/09/2023 [place] - [place] 03/09/2023 Problem Noted Date Diagnosed Date [facility] - [facility] 03/09/2023 [place] - [place] 03/09/2023 Problem Noted Date Diagnosed Date [facility] - [facility] 03/09/2023 [place] - [place] 03/09/2023 Problem Noted Date Diagnosed Date [facility] - [facility] 03/09/2023 [place] - [place] 03/09/2023 Summary Purpose Family History No Family History Records Found Advance Directives No Advanced Directives Records Found Additional Source Comments Source Comments (unrecognize d section and content) In the event this informatio n is protected by the Federal Confidentiality of Alcohol and Drug Abuse Patient Records regulations: The Federal rules restrict any use of the information to criminally investigate or prosecute any alcohol or drug abuse patient.[facility] the event this information is protected by the Federal Confidentiality of Alcohol and Drug Abuse Patient Records regulations: The Federal rules restrict any use of the information to criminally investigate or prosecute any alcohol or drug abuse patient.[facility] the event this information is protected by the Federal Confidentiality of Alcohol and Drug Abuse Patient Records regulations: The Federal rules restrict any use of the information to criminally investigate or prosecute any alcohol or drug abuse patient.[facility] the event this information is protected by the Federal Confidentiality of Alcohol and Drug Abuse Patient Records regulations: The Federal rules restrict any use of the information to criminally investigate or prosecute any alcohol or drug abuse patient.[facility] the event this information is protected by the Federal Confidentiality of Alcohol and Drug Abuse Patient Records regulations: The Federal rules restrict any use of the information to criminally investigate or prosecute any alcohol or drug abuse patient.[facility] the event this information is protected by the Federal Confidentiality of Alcohol and Drug Abuse Patient Records regulations: The Federal rules restrict any use of the information to criminally investigate or prosecute any alcohol or drug abuse patient.[facility] the event this information is protected by the Federal Confidentiality of Alcohol and Drug Abuse Patient Records regulations: The Federal rules restrict any use of the information to criminally investigate or prosecute any alcohol or drug abuse patient.[facility] the event this information is protected by the Federal Confidentiality of Alcohol and Drug Abuse Patient Records regulations: The Federal rules restrict any use of the information to criminally investigate or prosecute any alcohol or drug abuse patient.[facility] the event this information is protected by the Federal Confidentiality of Alcohol and Drug Abuse Patient Records regulations: The Federal rules restrict any use of the information to criminally investigate or prosecute any alcohol or drug abuse patient.[facility] the event this information is protected by the Federal Confidentiality of Alcohol and Drug Abuse Patient Records regulations: The Federal rules restrict any use of the information to criminally investigate or prosecute any alcohol or drug abuse patient.[facility] the event this information is protected by the Federal Confidentiality of Alcohol and Drug Abuse Patient Records regulations: The Federal rules restrict any use of the information to criminally investigate or prosecute any alcohol or drug abuse patient.[facility] the event this information is protected by the Federal Confidentiality of Alcohol and Drug Abuse Patient Records regulations: The Federal rules restrict any use of the information to criminally investigate or prosecute any alcohol or drug abuse patient.[facility] the event this information is protected by the Federal Confidentiality of Alcohol and Drug Abuse Patient Records regulations: The Federal rules restrict any use of the information to criminally investigate or prosecute any alcohol or drug abuse patient.[facility] the event this information is protected by the Federal Confidentiality of Alcohol and Drug Abuse Patient Records regulations: The Federal rules restrict any use of the information to criminally investigate or prosecute any alcohol or drug abuse patient.[facility] the event this information is protected by the Federal Confidentiality of Alcohol and Drug Abuse Patient Records regulations: The Federal rules restrict any use of the information to criminally investigate or prosecute any alcohol or drug abuse patient.[facility] the event this information is protected by the Federal Confidentiality of Alcohol and Drug Abuse Patient Records regulations: The Federal rules restrict any use of the information to criminally investigate or prosecute any alcohol or drug abuse patient.[facility] the event this information is protected by the Federal Confidentiality of Alcohol and Drug Abuse Patient Records regulations: The Federal rules restrict any use of the information to criminally investigate or prosecute any alcohol or drug abuse patient.[facility] the event this information is protected by the Federal Confidentiality of Alcohol and Drug Abuse Patient Records regulations: The Federal rules restrict any use of the information to criminally investigate or prosecute any alcohol or drug abuse patient.[facility] the event this information is protected by the Federal Confidentiality of Alcohol and Drug Abuse Patient Records regulations: The Federal rules restrict any use of the information to criminally investigate or prosecute any alcohol or drug abuse patient.[facility] the event this information is protected by the Federal Confidentiality of Alcohol and Drug Abuse Patient Records regulations: The Federal rules restrict any use of the information to criminally investigate or prosecute any alcohol or drug abuse patient.[facility] the event this information is protected by the Federal Confidentiality of Alcohol and Drug Abuse Patient Records regulations: The Federal rules restrict any use of the information to criminally investigate or prosecute any alcohol or drug abuse patient.[facility] the event this information is protected by the Federal Confidentiality of Alcohol and Drug Abuse Patient Records regulations: The Federal rules restrict any use of the information to criminally investigate or prosecute any alcohol or drug abuse patient.[facility] the event this information is protected by the Federal Confidentiality of Alcohol and Drug Abuse Patient Records regulations: The Federal rules restrict any use of the information to criminally investigate or prosecute any alcohol or drug abuse patient.[facility] the event this information is protected by the Federal Confidentiality of Alcohol and Drug Abuse Patient Records regulations: The Federal rules restrict any use of the information to criminally investigate or prosecute any alcohol or drug abuse patient.[facility] the event this information is protected by the Federal Confidentiality of Alcohol and Drug Abuse Patient Records regulations: The Federal rules restrict any use of the information to criminally investigate or prosecute any alcohol or drug abuse patient.[facility] the event this information is protected by the Federal Confidentiality of Alcohol and Drug Abuse Patient Records regulations: The Federal rules restrict any use of the information to criminally investigate or prosecute any alcohol or drug abuse patient.[facility] the event this information is protected by the Federal Confidentiality of Alcohol and Drug Abuse Patient Records regulations: The Federal rules restrict any use of the information to criminally investigate or prosecute any alcohol or drug abuse patient.[facility] the event this information is protected by the Federal Confidentiality of Alcohol and Drug Abuse Patient Records regulations: The Federal rules restrict any use of the information to criminally investigate or prosecute any alcohol or drug abuse patient.[facility] Reason for Visit (unrecogniz ed section and content) Specialty Diagnoses / Procedures Referred By Contac t Referred To Contact [facility] [place]oses Encntr for suprvsn of normal preg, unsp, second trimester Procedures OBSTETRIC ULTRASOUND WHI US PREG UTERUS AFTER 1ST TRIMEST GESTATION Raymond Vann MD [address] [place] [address] [facility] [address] [place] [address] Referral ID Status Reason Start Date Expiration Date Visits Requested Visits Authorized [id number] Authorized Auto-Generat ed Referral 05/12/2023 09/13/2023 20 20 Reason Comments New Patient Evaluation Specialty Diagnoses / Procedures Referred By Contac t Referred To Contact Diagnoses Anxiety with depression Procedures CONSULT TO PSYCHIATRY OFFICE/OUTPATIENT NEW HIGH MDM 60-74 MINUTES Tresa Harrell, OFFICE HELPER.SOFTWARE IMPLEMENTATION PROJECT MANAGER [address] [place] [address] Referral ID Status Reason Start Date Expiration Date Visits Requested Visits Authorized [id number] Pending Review PCP Requested Referral 10/24/2021 10/24/2022 1 1 Reason Comments Refill Request Reason Comments Follow Up Reason Comments Med Change Request Reason Onset Date Comments IUD Removal 11/28/2022 Specialty Diagnoses / Procedures Referred By Ronn love Referred To Contact [facility] [place]oses Encounter for IUD removal Procedures REMOVE INTRAUTERINE DEVICE REMOVE INTRAUTERINE DEVICE Minerva Schultz, OFFICE HELPER.SOFTWARE IMPLEMENTATION PROJECT MANAGER [address] [place] [address] [facility] [address] [place] [address] Referral ID Status Reason Start Date Expiration Date V isits Requested Visits Authorized [id number] Closed Auto-Generate d Referral 10/21/2022 10/20/2023 1 1 Reason Comments Sore Throat THIBODEAUX, fatigue x this A M Reason Comments Initial OB Visit Reason Comments Medication Problem Reason Onset Date Comments Refill Request 04/28/2023 Reason Onset Date Comments Care 05/06/2023 Reason Comments OB ER Followup Reason Onset Date Comments Care 06/03/2023 Immunizations 06/03/2023 Flu vaccination Reason Onset Date Comments Care 07/01/2023 Reason Onset Date Comments Care 07/29/2023 Reason Onset Date Comments Care 08/12/2023 Care Teams (unrecognized sec tion and content) Exhibit Builder Relationship Specialty Start Date End Date Twin Toro DO [address] [place] [address] PCP - General Family Practice 01/22/15 Exhibit Builder Relationship Specialty Start Date End Date Twin Toro DO [address] [place], [place] [address] PCP - General Family Practice 01/22/15 Exhibit Builder Relationship Specialty Start Date End Date Twin Toro DO [address] [place] [address] PCP - General Family Practice 01/22/15 Exhibit Builder Relationship Specialty Start Date End Date Twin Toro, DO [address] [place] [address] PCP - General Family Practice 01/22/15 Exhibit Builder Relationship Specialty Start Date End Date Twin Toro, DO [address] [place] [address] PCP - General Family Practice 01/22/15 Exhibit Builder Relationship Specialty Start Date End Date Twin Toro, DO [address] [place] [address] PCP - General Family Medicine 01/22/15 Exhibit Builder Relationship Specialty Start Date End Date Twin Toro, DO [address] [place] [address] PCP - General Family Medicine 01/22/15 Exhibit Builder Relationship Specialty Start Date End Date Twin Toro, DO [address] [place] [address] PCP - General Family Medicine 01/22/15 Exhibit Builder Relationship Specialty Start Date End Date Twin Toro, DO [address] [place] [address] PCP - General Family Medicine 01/22/15 Exhibit Builder Relationship Specialty Start Date End Date Twin Toro, DO [address] [place] [address] PCP - General Family Medicine 01/22/15 Exhibit Builder Relationship Specialty Start Date End Date Twin Toro DO [address] [place] [address] PCP - General Family Medicine 01/22/15 Exhibit Builder Relationship Specialty Start Date End Date Twin Toro DO [address] [facility] [place] [address] PCP - General Family Medicine 01/22/15 Exhibit Builder Relationship Specialty Start Date End Date Twin Toro DO [address] [facility] [place] [address] PCP - General Family Medicine 01/22/15 Exhibit Builder Relationship Specialty Start Date End Date Twin Toro, [address] [facility] [place] [address] PCP - General Family Medicine 01/22/15 Exhibit Builder Relationship Specialty Start Date End Date Twin Toro DO [address] [facility] [place] [address] PCP - General Family Medicine 01/22/15 Exhibit Builder Relationship Specialty Start Date End Date Twin Toro, [address] [facility] [place] [address] PCP - General Family Medicine 01/22/15 Exhibit Builder Relationship Specialty Start Date End Date Twin Toro, [address] [facility] [place] [address] PCP - General Family Medicine 01/22/15 Exhibit Builder Relationship Specialty Start Date End Date Twin Toro, [address] [facility] [place] [address] PCP - General Family Medicine 01/22/15 Exhibit Builder Relationship Specialty Start Date End Date Twin Toro, [address] [facility] [place] [address] PCP - General Family Medicine 01/22/15 Exhibit Builder Relationship Specialty Start Date End Date Twin Toro Kelby [address] [place] [address] PCP - General Family Medicine 01/22/15 INFORMATION SOURCE (unrecogn ized section and content) FOR RECORDS PERTAINING TO PATIENTS WHO ARE OR HAVE BEEN ENROLLED IN A CHEMICAL DEPENDENCY/SUBSTANCEABUSE PROGRAM, SOME INFORMATION MAY BE OMITTED. This clinical summary was aggregated from multiple sources. Caution should be exercised in using it in the provision of clinical care. This summary normalizes information from multiple sources, and as a consequence, information in this document may materially change the coding, format and clinical context of patient data. In addition, data may be omitted in some cases. CLINICAL DECISIONS SHOULD BE BASED ON THE PRIMARY CLINICAL RECORDS. [employer] [facility]. provides no warranty or guarantee of the accuracy or completeness of information in this document.
[2023-10-12] MEDS: Lactated Ringers 1,000 ML 50 ML IV (07:40)
[2023-10-12 07:54] LABS: Absolute Lymphocyte Count 1.21 X10^3/uL (0.83-4.51); Absolute Neutrophil Count 5.7 X10^3/uL (2.0-7.7); Basophil# 0.04 X10^3/uL; Basophil% 0.5 % (0-1); Eosinophils% 1.3 % (0-5); Hematocrit 33.3 % (37-47); Hemoglobin 11.3 g/dL (12.0-15.0); Lymphocyte # 1.21 X10^3/ul (0.83-4.51); Lymphocyte % 15.3 % (19-41); Mean Corp Hgb Conc 33.9 g/dL (32-36); Mean Corpuscular Hgb 31.6 pg (27.0-32.0); Mean Platelet Vol. 10.8 fl (6.2-12.0); Monocyte# 0.66 X10^3/uL; Monocyte% 8.4 % (0-10); NRBC Flagged by Analyzer 0 % (0-5); Neutrophil # 5.73 X10^3/uL (2.7-7.7); Neutrophil % 72.6 % (47-70); Platelet Count 167 K/mm3 (150-450); RBC Distribution Width CV 13.7 % (11.6-14.6); RBC Distribution Width SD 45.6 fl (35.1-43.9); Red Blood Count 3.58 M/mm3 (4.2-5.4); White Blood Count 7.9 K/mm3 (4.4-11.0)
[2023-10-12] MEDS: Oxytocin 15 Units/NS 250ml 15 UNITS/250 ML IV.SOLN 2 UNITS IV (08:03)
--- NOTE | 2023-10-12 08:11 | HP.PCM.OB_ITS ---
HPI - General General Date of Admission: 10/12/23 HPI Narrative FREDRICK CONTEH, is a 33 F @ 39.1 weeks who presents IOL due to H/o DVT currently on lovenox during . [facility] Medical History (Updated 10/12/23 @ 08:[address] Sandra Funez MD) Abnormal uterine bleeding (AUB) Depression DVT (deep venous thrombosis) Former smoker Non-smoker Open wound Restless legs Wears glasses Home Medications acyclovir 400 mg tablet 400 mg PO TID Hx: Herpes 10/12/23 [History Last Taken 10/09/23 08:00 400 mg] enoxaparin 40 mg/0.4 mL subcutaneous syringe 40 mg subcut Q24H Hx DVT 10/12/23 [History Last Taken 10/09/23 08:00 40 mg] Allergy/AdvReac Type Severity Reaction Status Date / Time clindamycin Allergy Rash Verified 10/12/23 07:37 Surgical History History of wisdom tooth extraction Social History Smoking Status: Never smoker History Elective abortions Hx Para 1 Spontaneous abortions Hx # Term Pregnancies Ectopic pregnancies Hx # Pregnancies Multiple births # of living children Vital Signs Vital Signs Vital Signs: 10/12/23 07:34 10/12/23 07:34 10/12/23 07:34 Temperature 97.9 F Pulse Rate 85 Blood Pressure 102/62 BP Systolic 102 BP Diastolic 62 Weight Weight: 68.946 kg Body Mass Index (BMI) 26.9 Physical Exam Narrative VE: 2-3/70/-2 AROM clear fluid Const alert and oriented x3 General Appearance: cooperative HEENT normocephalic GI GI Narrative: Gravid, non tender to palpation. OB / External & Speculum: external exam normal Extremity normal to inspection Skin no rashes or lesions noted Neuro oriented x3 and CN's II-XII intact bilaterally Psych Appearance: grossly normal Labs Labs Labs: Blood Type O POSITIVE Antibody Screen NEGATIVE Hct 33.3 % (37-47) L Hgb 11.3 g/dL (12.0-15.0) L Syphilis Total Ab Pending Rhogam given: No Assessment & Plan (1) H/O deep vein thrombosis during : (2) HSV-2 infection complicating : (3) Depression: COMMENT: on ZOloft (4) 39 weeks gestation of : PLAN: Plan Admit to L&D [place] FHR/TOCO Epidural if requested for pain Monitor VS Anticipate Pitocin AROM performed NO HSV lesions
[2023-10-12 08:43] LABS: Syphilis Antibodies Non-reactive
[2023-10-12] MEDS: LACTATED RINGERS 500 ML 999 ML IV (09:46)
[2023-10-12] MEDS: fentaNYL-bupivacaine (epidural) 100 ML BAG EPIDURAL (10:51)
--- NOTE | 2023-10-12 12:25 | EX.PCM.OBRPT ---
Vaginal Delivery Operative Information Date of Procedure: 10/12/23 Pre-Operative Diagnosis: 39 weeks, H/o DVT on lovenox , HSV in - no active lesions, depression in Post-Operative Diagnosis: Same, live female infant Surgery / Procedure Performed: Spontaneous Vaginal Delivery Type of Anesthesia: Epidural Estimated Blood Loss: 50 Time of Delivery: 12:07 Findings Description of Procedure: Patient progressed to fully dilated. Good maternal pushing efforts delivered the 's head followed by the anterior shoulder posterior shoulder and the rest infant's body without complication. The was delivered and placed on the mother's chest for immediate skin to skin. The infant was vigorous at time of delivery. Delayed cord clamping was performed. IV Pitocin was then given and placenta was delivered intact without complication. The vaginal and perineal tissue was evaluated and intact no lacerations. Presentation: Vertex Amniotic Membrane Rupture Type: Artificial Amniotic Fluid Description: Clear Placental Delivery Description: Spontaneous Placenta Disposition: [facility] Specimen(s) Removed: Placenta Cord Vessel Description: 3 Vessels Cord Entanglement: None and True Knot(s) Infant A Gender: Female (1 minute): 8 (5 minute): 9 Delayed Cord Clamping: Yes Post Vaginal Delivery Medications Given After Delivery: IV Pitocin Episiotomy Description: None Laceration: None Complication Complications: None
[2023-10-12] MEDS: Oxytocin 15 Units/NS 250ml 15 UNITS/250 ML IV.SOLN 83 UNITS IV (12:44)
[2023-10-12] MEDS: Acyclovir 200 MG Capsule 400 MG PO ×2 (14:03→22:01)
[2023-10-12] MEDS: 0.9% Saline Lock 10 ML Syringe IV (16:13)
[2023-10-12] MEDS: Sertraline 100 MG Tablet 200 MG PO (22:01)
[2023-10-13 00:22] VITALS: TEMP 36.8; O2SAT 98
[2023-10-13 00:23] VITALS: BP 109/63; PULSE 65; PULSE 70; RESP 18; TEMP 36.8; O2SAT 97
[2023-10-13] MEDS: Enoxaparin 40 MG/0.4 ML Syringe SC (00:25)
[2023-10-13 04:20] VITALS: BP 118/57; PULSE 70; PULSE 71; RESP 16; TEMP 36.7; TEMP 37.1; O2SAT 96; O2SAT 97
[2023-10-13] MEDS: Acyclovir 200 MG Capsule 400 MG PO (05:32)
[2023-10-13 07:30] VITALS: BP 111/62; PULSE 72; TEMP 36.8
[2023-10-13 07:35] VITALS: BP 111/62; PULSE 79; RESP 14; TEMP 36.8; O2SAT 96
--- NOTE | 2023-10-13 08:23 | PCM.PN.OB ---
Subjective Subjective Doing well per patient and nursing staff. Ambulating and taking PO without difficulty. Voiding and passing flatus. Pain controlled. Denies headache, visual changes, chest pain, shortness of breath, leg pain or increased bleeding. Lochia normal. Objective Data Objective Data Vital Signs: Vital Signs Temp Pulse Resp BP Pulse Ox O2 Del Method 98.2 F 72 16 111/62 97 Room Air 10/13/23 07:30 10/13/23 07:30 10/13/23 04:20 10/13/23 07:30 10/13/23 04:20 10/13/23 04:20 Oxygen Delivery Method Room Air Weight: 152 lb Body Mass Index (BMI) 26.9 Intake & Output: Intake and Output for Last 24 Hours 10/11/23 10/12/23 10/13/23 23:59 23:59 23:59 Intake Total 1371.30 / 1371.30 Output Total 1600 / 1600 Balance -228.70 / -228.70 Lab / Micro Data 10/12/23 07:40 Labs: Laboratory Results - last 24 hr 10/12/23 07:40: Syphilis Total Ab Non-reactive, Blood Type O POSITIVE, Antibody Screen NEGATIVE ROS Constitutional Constitutional: Reports systems reviewed and no addt'l complaints, except as documented; Denies headache(s) Eyes Eyes: Denies acute decrease in peripheral vision, blurry vision or change in vision ENT HEENT: Reports systems reviewed and no addt'l complaints, except as documented Cardiovascular Cardiovascular: Denies chest pain or dizziness Respiratory/Chest Respiratory/Chest: Denies cough, dyspnea, dyspnea on exertion, shortness of breath at rest or shortness of breath with exertion Gastrointestinal Gastrointestinal: Denies abdominal pain, diarrhea, nausea or vomiting Genitourinary Genitourinary: Denies abdominal discomfort or movement Musculoskeletal Musculoskeletal: Denies limited range of motion Integumentary Integumentary: Reports systems reviewed and no addt'l complaints, except as documented Neurologic Neurologic: Reports systems reviewed and no addt'l complaints, except as documented Psychiatric Psychiatric: Reports systems reviewed and no addt'l complaints, except as documented Endocrine Endocrinology: Reports systems reviewed and no addt'l complaints, except as documented Hematologic/Lymphatic Hematologic/Lymphatic: Reports systems reviewed and no addt'l complaints, except as documented Allergic/Immunologic Allergic/Immunologic: Reports systems reviewed and no addt'l complaints, except as documented Physical Exam Const alert and oriented x3 General Appearance: cooperative Orientation / Consciousness: awake, oriented to person, oriented to place and oriented to time Exam Limitations: no limitations HEENT normocephalic Head and Scalp: normal to inspection, normocephalic and atraumatic Face and Sinus: normal facial exam Eyes General Eye: normal appearance of both eyes Neck full ROM Chest Chest: symmetrical chest wall rise Resp normal respiratory effort and normal air movement Auscultation: clear to auscultation bilaterally Cardio regular rate, regular rhythm, S1 normal heart sound, S2 normal heart sound, no murmurs, no rub, no gallops and no clicks GI normal to inspection, nondistended, normoactive bowel sounds and non-tender appearance of the vagina normal Bladder / Kidney Exam: no CVA tenderness Back/Spine normal ROM Extremity normal to inspection and full ROM Skin no rashes or lesions noted Neuro oriented x3 and moves all extremities Sensorium / Orientation: awake, alert and oriented to person Assessment & Plan (1) 39 weeks gestation of : (2) Vaginal delivery: PLAN: Plan 1) PPD#1 2) support 3) Follow up in 2 weeks and 6 weeks PP 4) D/C home
--- NOTE | 2023-10-13 08:40 | PCM.DC.SUM ---
Providers Date of Admission: 10/12/23 Primary Care Physician: Dr. Twin Guajardo DO Reason For Visit: VAGINAL DELIVERY Diagnosis Discharge Diagnosis (1) 39 weeks gestation of : Status: Acute Code(s): Z3A.39 - 39 weeks gestation of (2) Vaginal delivery: Status: Acute Code(s): O80 - Encounter for full-term uncomplicated delivery Plan 1) PPD#1 2) support 3) Follow up in 2 weeks and 6 weeks PP 4) D/C home Medications at Discharge Home Medications acyclovir 400 mg tablet 400 mg PO TID Hx: Herpes 10/12/23 enoxaparin 40 mg/0.4 mL subcutaneous syringe 40 mg subcut Q24H Hx DVT 10/12/23 acetaminophen 500 mg tablet 1,000 mg (2 x 500 mg) PO Q6H PRN PRN Pain 1-10 Or Fever #0 tabs 10/13/23 ibuprofen 600 mg tablet 600 mg PO Q6H PRN PRN Pain Score 1-3 #0 tabs 10/13/23 sertraline 100 mg tablet 200 mg (2 x 100 mg) PO DAILY #0 tabs 10/13/23 Weight / BMI Weight Weight: 152 lb Body Mass Index (BMI) 26.9 ABG / Lab / Microbiology Data 10/12/23 07:40 Laboratory: Laboratory Results - last 24 hr 10/12/23 07:40: Syphilis Total Ab Non-reactive, Blood Type O POSITIVE, Antibody Screen NEGATIVE Meaningful Use Info Meaningful Use Diagnoses (Choose all that apply): None applicable Discharge Plan Admission Admit Date/Time: 10/12/23 06:55 Primary Reason for Your Visit: Vaginal Delivery Attending Provider: Sandra Funez Primary Care Provider: Twin Guajardo Discharge Orders/Prescriptions Prescriptions: New acetaminophen 500 mg Tablet 1,000 mg PO Q6H PRN PRN (Reason: Pain 1-10 Or Fever) Qty: 0 0RF sertraline 100 mg Tablet 200 mg PO DAILY Qty: 0 0RF ibuprofen 600 mg Tablet 600 mg PO Q6H PRN PRN (Reason: Pain Score 1-3) Qty: 0 0RF Continued enoxaparin 40 mg/0.4 mL syringe 40 mg subcut Q24H Patient Comments: INJECT 0.4 ML SUBCUTANEOUSLY ONCE DAILY. acyclovir 400 mg tablet 400 mg PO TID Patient Comments: TAKE 1 TABLET BY MOUTH THREE TIMES A DAY Referrals / Follow Up: Twin Guajardo DO [Primary Care Provider] - Disposition Disposition (needs filled in before D/C Order can be placed): Home, Self Care
--- NOTE | 2023-10-13 11:06 | CASEMGMT ---
Social Work Assessment Labor and Delivery Unit Patient Address:[address] [place] [address] Phone number: [phone] Date of Referral: 10/12/23 Time of Referral:? [id number] Referred By: Sandra Stack Date of Intervention: ?10/13/23 Time of Intervention:? 944 Reason for Referral:? depression, and history of PPD Sw completed chart review and acknowledges social work consult due to maternal mental health history of depression and depression. Sw presented to bedside and introduced self to mother of baby (MOB- Lali) and father of baby (FOB- Javier). Sw explained reason for sw involvement and completed psychosocial assessment. Sw asked FOB to step out of room momentarily so that MOB could complete [place] Depression Scale. FOB left room respectfully and without issue. History obtained from: medical records, MOB and FOB Household composition: Currently residing in the home is MOB, FOB, their two older children (Jozef: 06/03/17, and Harika: 09/24/19) and now baby. Patient's parent/guardian status:? ?MOB and FOB met while at a [employer] and have been together for 10 years. [place] baby is third baby for both parents. While meeting with MOB privately she denies any concerns of domestic violence or intimate partner violence. Medical History: ?SILAS is 4, para 2- now 3 following labor and delivery of . SILAS received routine care with [facility] during . MOB delivered baby via vaginal delivery on 10/12/23 following an induction of labor. Baby girl, named Shae Mccormick, was born at 39 weeks gestation, weighing 7lb 3oz and her apgars were 8 and 9 at one and five minutes of life respectfully. Baby will be followed by Dr. Ortiz for Pediatrics. MOB states that she is breast feeding and has a pump for home. Educational Status:?Both parents graduated from high school, deny any concerns with reading, learning or comprehension. 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 Financial Status: Both parents are gainfully employed outside of the home. 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 Supplies:?? Parents report that they have obtained all necessary supplies for baby, including: car seat, safe sleep space, clothes, diapers and wipes. Childcare/Caregiver(s):?SILAS states that when both parents return to work they have a friend who babysits for them 4 days out of the week. MOB is off on Wednesdays. Transportation:?? Both parents have their drivers license and reliable means of transportation. No barriers at this time. Programs/Agencies Involved: ?Parents are not connected to any community resources at this time. ?? Children Services/Legal Issues:??? no history of Children Services involvement, no issues or concerns warranting referral at this time. Behavioral Health Issues: ??Mental Health History: ERROL denies any mental health diagnoses at this time. SILAS states that she has been diagnosed with major depressive disorder, anxiety and OCD. SILAS states that she also experienced baby blues following the of her first baby. SILAS states that at that time she struggled with OCD and was extremely sleep deprived. SILAS stated that there was a moment in the middle of the night following feeding the baby a bottle, when baby was inconsolable and she started to feel herself getting frustrated because she could not get the baby to calm down. SILAS stated that she had a thought come into her mind where she wanted to throw the baby out the window. SILAS stated that she recognized the thought and knew she needed to lay the baby down in a safe space. SILAS stated that is what she did, and then got a drink of water and took some deep breaths. SILAS states that she never experienced anything that severe following the of her second baby. SILAS completed [place] Depression Scale, her score was a 9. Sw provided education and support. SILAS is connected to psychiatry support with [facility] and is prescribed Zoloft. Substance Use History:?MOB denies substance use prior to and during . ? Family History:?Parents deny family history of substance use and significant mental health history. ? Drug Screens: ??No urine screens observed in chart review. Family/Social Stressors:? Parents deny any issues or concerns at this time. Parents state that they are eager to get discharged and go home to be in their own space. Support Systems: MOB states that both sets of grandparents are extremely supportive and helpful. MOB states that paternal grandma has a history of depression and is helpful when MOB is struggling. Depression/Shaken Baby/Safe Sleeping:? Sw educated parents on signs and symptoms of baby blues and depression. Parents express understanding. Sw also educated parents on shaken baby prevention and ABCs of safe sleep. Parents express understanding. ASSESSMENT:? MOB and baby admitted following labor and delivery of . MOB and FOB both participated in completion of psychosocial assessment. MOB and FOB maintained good eye contact during assessment. MOB open and talkative about her mental health history. MOB and FOB in pleasant and talkative moods. MOB and FOB appreciative of sw involvement and support. Parents receptive to literature provided on signs and symptoms of baby blues and depression to be on the lookout for, as well as appropriate coping skills to utilize if MOB should struggle. PLAN:? MOB and baby to be discharged when medically ready. ?No other services requested or indicated. Isaiah Le, COUNTY ADMINISTRATOR, [employer]
== END 2023-10-13 13:00 | disposition home or self-care (01) | DRG 806 ==
PROVIDERS: Admitting Provider Obstetrics & Gynecology; PCP Student in an Organized Health Care Education/Training Program; Visit Provider Obstetrics & Gynecology
DX: O99.344 Other mental disorders complicating childbirth (principal); Z37.0 Single live birth; O98.52 Other viral diseases complicating childbirth; F32.A Depression, unspecified; Z3A.39 39 weeks gestation of pregnancy; Z86.718 Personal history of other venous thrombosis and embolism; Z87.59 Personal history of other complications of pregnancy, childbirth and the puerperium; Z87.891 Personal history of nicotine dependence; B00.9 Herpesviral infection, unspecified
CPT/HCPCS: 59025; 59050; 85025; 86780; 86850; 86900; 86901; 99221; J7120; A4216; G0378

== ENCOUNTER 2024-10-22 20:07 | Emergency (ER) | payer BC, SELFPAY ==
[2024-10-22 20:07] VITALS: BP 122/72; PULSE 77; RESP 15; TEMP 35.7; O2SAT 100; BMI 30.4
--- NOTE | 2024-10-22 20:46 | EX.ED.GENINJ ---
HPI History of Present Illness Chief Complaint: Fall Detail of Chief Complaint: Fell down 4 steps due to ice Informant: patient Onset/Context/Timing Onset: Today and Hours Mechanism/Context: Blunt Injury and Fall Location of pain/injuries: Left forearm Quality of Pain: Dull, Aching and Throbbing Location: Occipital pain and left forearm pain and superficial laceration right finge Current Severity: Mild Maximum Severity: Moderate Worsened by: Movement of left upper extremity and palpation of left forearm Relieved by: Nothing Associated Symptoms Associated Symptoms: Negative for Parasthesias, Weakness, Loss of function, Inability to ambulate, Loss of consciousness or Amnesia Narrative Narrative: Patient is a 34-year-old woman. She slipped on ice covered steps. She fell down 4 steps. She hit the back of her head. She denied loss of conscious. She was not dazed. Denies headache. Denies visual symptoms. She denies photophobia or sonophobia. She denies neck pain. She denies paresthesia, anesthesia or motor weakness. She sustained small laceration to right long finger dorsal side near the cuticle and abrasion proximal volar ulnar side of the left forearm. She complains of tingling when she attempts to make a fist with her left hand. She has no other complaints Prior similar symptoms: No Recent Illness/Hospitalization: No PFSH PFS Medical History HSV (herpes simplex virus) infection depression Depression Open wound DVT (deep venous thrombosis) Restless legs Non-smoker Abnormal uterine bleeding (AUB) Home Medications ?Medication ?Instructions ?Recorded ?Last Taken ?Type acyclovir 400 mg tablet 400 mg PO TID Hx: Herpes 10/12/23 10/09/23 08:00 History 400 mg enoxaparin 40 mg/0.4 mL 40 mg subcut Q24H Hx DVT 10/12/23 10/09/23 08:00 History subcutaneous syringe 40 mg acetaminophen 500 mg tablet 1,000 mg (2 x 500 mg) PO Q6H PRN 10/13/23 Unknown Rx PRN Pain 1-10 Or Fever #0 tabs ibuprofen 600 mg tablet 600 mg PO Q6H PRN PRN Pain Score 10/13/23 Unknown Rx 1-3 #0 tabs sertraline 100 mg tablet 200 mg (2 x 100 mg) PO DAILY #0 10/13/23 Unknown Rx tabs Allergy/AdvReac Type Severity Reaction Status Date / Time clindamycin Allergy Rash Verified 10/22/24 20:07 Surgical History History of surgery History of wisdom tooth extraction Social History Smoking Status: Never smoker ROS ROS ED Review of Systems ROS Unobtainable: other Details: Patient complains of head pain not headache. Constitutional Constitutional ED: Denies chills, fever(s) or subjective Eyes Eyes: Denies blurry vision or change in vision ENT ENT ED: Denies ear pain, rhinorrhea or sore throat Cardiovascular Cardiovascular: Denies chest pain or palpitations Respiratory/Chest Respiratory/Chest: Denies cough or dyspnea Gastrointestinal Gastrointestinal: Denies abdominal pain, nausea or vomiting Integumentary Reports Abrasions; Denies rash Neurologic Neurologic: Reports headache(s); Denies paresthesias or weakness Hematologic/Lymphatic Hematologic/Lymphatic: Denies easy bleeding or easy bruising EXAM Physical Exam Const Vital Signs: 10/22/24 20:07 Temperature 96.3 F L Temperature Source Temporal Pulse Rate 77 Respiratory Rate 15 Blood Pressure 122/72 H Blood Pressure Mean 88 Pulse Ox 100 Oxygen Delivery Method Room Air Positive well nourished and well developed General Appearance ED: well developed and NAD HEENT HEENT Narrative: There is no palpable depression. There is no clinical findings of basilar skull fracture. tenderness Nose: Negative for septum abnormal Eyes PERRL and EOMs intact bilaterally Neck full ROM General: Negative for tenderness Resp normal respiratory effort and clear to auscultation bilaterally Cardio regular rhythm, S1 normal heart sound, S2 normal heart sound and no murmurs GI normal to inspection, nondistended, normoactive bowel sounds, non-tender, non-distended and no masses Extremity full ROM; Negative for normal to inspection Extremity Narrative: There is pain outpatient over the olecranon process and proximal left ulna. There is no pain ovation of the lateral medial epicondyle. There is no pain ovation of the radial head. Axillary, median, radial and ulnar function intact. Radial pulses palpable. General Extremety ED: Yes edema and tenderness; Negative for deformity General Extremity: edema; Negative for deformity Neuro oriented x3, CN's II-XII intact bilaterally, moves all extremities, no focal motor deficits and no sensory deficits noted Adona Coma Scale: document GCS findings Spontaneous Obeys Commands Oriented 15 Sensorium / Orientation: alert Psych mental status grossly normal and thought process normal Skin Skin Narrative: Contusion proximal left forearm Trauma: abrasion MDM MDM MDM Narrative Medical decision making narrative: Per the [place] CT head rule and [place] rule imaging of the head is not indicated. C-spine was cleared per Nexus criteria. X-ray of the forearm was obtained to rule out fracture. The wound involving the right finger is minimal 1 mm and superficial. This will require no intervention. Patient does not have a concussion she has a contusion to her head. Radiography Chest X-Ray - ED: 2 View (Of the left forearm was independently interpreted by me as negative for fracture, subluxation dislocation. There is mild soft tissue swelling noted. Patient was discharged to home) Treatment and Re-Evaluation Narrative: Patient was informed of results and discharged with appropriate home-going structure Discharge Plan Triage Chief Complaint: Fall ED Provider: Natan Fam Dx/Rx/DC Orders Clinical Impression: Contusion of scalp, Contusion of left forearm, initial encounter, Abrasion of left forearm, Injury due to fall Instructions: ED Contusion, Upper Extremity, ED Scalp Contusion Prescriptions: No Action enoxaparin 40 mg/0.4 mL syringe 40 mg subcut Q24H Patient Comments: INJECT 0.4 ML SUBCUTANEOUSLY ONCE DAILY. acyclovir 400 mg tablet 400 mg PO TID Patient Comments: TAKE 1 TABLET BY MOUTH THREE TIMES A DAY acetaminophen 500 mg Tablet 1,000 mg PO Q6H PRN PRN (Reason: Pain 1-10 Or Fever) Qty: 0 0RF sertraline 100 mg Tablet 200 mg PO DAILY Qty: 0 0RF ibuprofen 600 mg Tablet 600 mg PO Q6H PRN PRN (Reason: Pain Score 1-3) Qty: 0 0RF Primary Care Provider: Twin Guajardo Referrals: Twin Guajardo DO [Primary Care Provider] - Activity Restrictions/Additional Instructions: 1. Apply ice to areas of discomfort 6-8 times a day for the first 3 to 5 days. Application of heat will make it worse. 2. Take either 4 ibuprofen tablets every 8 hours or 2 Aleve tablets every 12 hours for next 3 to 5 days. 3. You will feel worse over the next 24 to 48 hours and probably hurt in more places. 4. You may hurt for up to a week. Print Language: Vincentian Disposition Disposition: Home, Self Care
--- NOTE | 2024-10-22 20:50 | RAD_ITS ---
PROCEDURE: FOREARM 2 VIEWS REASON FOR EXAM: Injury/pain TECHNIQUE: 2 view(s) of each forearm COMPARISON: None. FINDINGS: No acute fracture or dislocation. Soft tissue edema is present at the proximal forearm. No radiopaque foreign body identified. RAD/Forearm 2 Views IMPRESSION: 1. No acute osseous abnormality. Reading Location: [facility]
== END 2024-10-22 21:14 | disposition home or self-care (01) ==
PROVIDERS: Emergency Provider Emergency Medicine; PCP Student in an Organized Health Care Education/Training Program; Visit Provider Emergency Medicine
DX: S00.03XA Contusion of scalp, initial encounter (principal); S50.812A Abrasion of left forearm, initial encounter; W00.1XXA Fall from stairs and steps due to ice and snow, initial encounter; S50.12XA Contusion of left forearm, initial encounter; Z86.718 Personal history of other venous thrombosis and embolism; F32.A Depression, unspecified
CPT/HCPCS: 73090; 99282